=== PATIENT | male | born 1990 | race Caucasian/White ===

== ENCOUNTER 2017-05-31 13:51 | Emergency (ER) | payer OTHER ==
[2017-05-31] MEDS ORDERED: Albuterol/Ipratropium NEB.SOL* Albuterol 2.5 MG/Ipratropium 0.5 MG 3 ML INH ONE (15:12)
[2017-05-31 15:37] LABS: Hematocrit 39 % (42-52); Hemoglobin 13.2 g/dl (14.0-18.0); Mean Corpuscular HGB Conc 34 g/dl (31-36); Mean Corpuscular Hemoglobin 27 pg (27-31); Mean Corpuscular Volume 80 fL (80-94); Mean Platelet Volume 8 um3 (7.4-10.4); Platelet Count 157 10^3/ul (150-450); Red Blood Count 4.91 10^6/ul (4.0-5.4); Red Cell Distribution Width 13 % (10.5-15); White Blood Count 2.1 10^3/ul (3.5-10.8)
[2017-05-31 15:45] LABS: INR 0.99 (0.77-1.02)
[2017-05-31] MEDS: NS 0.9% 1000 ML* 2,000 ML IV ONE ×2 (15:52→15:53)
[2017-05-31 16:01] LABS: ABS Basophils 0.1 10^3/ul (0-0.2); ABS Eosinophils 0 10^3/ul (0-0.6); ABS Lymphocytes 0.8 10^3/ul (1.0-4.8); ABS Monocytes 0.2 10^3/ul (0-0.8); ABS Nucleated RBC 0 10^3/ul; Eosinophil % 0.5 % (0-6); Lymphocyte % 36.6 % (25-47); Nucleated Red Blood Cells % 0.1
--- NOTE | 2017-05-31 16:01 | RAD ---
INDICATION: Chest pain, shortness of breath, known LEFT side pneumonia. COMPARISON: May 23, 2017 TECHNIQUE: Dual energy PA and routine lateral views of the chest were obtained. REPORT: Bilateral subtle pulmonary opacities at the lower lung zones with worsening on the RIGHT and improvement on the LEFT compared with the prior exam. Negative for pleural effusion. No pneumothorax The heart, pulmonary vasculature, and mediastinal contours are unremarkable. IMPRESSION: The constellation of findings is most consistent with mild bronchopneumonia with interval worsening on the RIGHT and improvement on the LEFT compared with the prior exam.
[2017-05-31 16:12] LABS: EGFR Non-African American 105.3 (>60)
[2017-05-31] MEDS ORDERED: cefTRIAXone(*) 1 GM in NS 0.9% 50 ML* 50 ML IVPB ONE (17:17)
[2017-05-31] MEDS ORDERED: Azithromycin IV(*) 500 MG in NS 0.9% 250 ML* 250 ML IVPB ONE (17:18)
[2017-05-31] MEDS ORDERED: Iohexol 350* (CONTRAST) 500 ML MDV IV ONE (17:25)
[2017-05-31] MEDS ORDERED: NS 0.9% 1000 ML* 1,000 ML IV ONE (18:06)
--- NOTE | 2017-05-31 18:10 | RAD ---
INDICATION: Chest pain, shortness of breath, positive d-dimer COMPARISON: May 31, 2017 TECHNIQUE: Multidetector CT images were obtained from the lung apices to the upper abdomen with 75 mL Omnipaque 350 IV contrast. Pulmonary angiogram protocol. Multiplanar reformation including with maximum intensity projection. REPORT: Clear lungs and pleural spaces. Negative for pneumothorax. Negative for lymphadenopathy, cardiomegaly, pericardial effusion. Normal diameter thoracic aorta without abnormality. No filling defects are identified from the main to the subsegmental pulmonary arteries to indicate presence of a pulmonary embolism. Unremarkable images through the upper abdomen. Negative for thoracic osseous lesions or fracture. IMPRESSION: 1. Negative for pulmonary embolism. 2. No acute intrathoracic process evident.
--- NOTE | 2017-05-31 18:50 | RAD ---
INDICATION: Bilateral calf pain. COMPARISON: No relevant prior exams available on the [facility] [place] for comparison. TECHNIQUE: Cool scale, color Doppler, and spectral analysis of the deep veins of the BILATERAL lower extremities. Vessel compression, phasicity, and augmentation assessed. REPORT: The RIGHT common femoral, great saphenous, profunda femoral, femoral, popliteal, peroneal, and posterior tibial veins are patent. The LEFT common femoral, great saphenous, profunda femoral, femoral, popliteal, peroneal, and posterior tibial veins are patent. IMPRESSION: No evidence for RIGHT or LEFT lower extremity DVT.
[2017-05-31] MEDS ORDERED: Albuterol HFA INHALER* 8 gm MDI INH ONE (18:51)
--- NOTE | 2017-05-31 19:08 | ED ---
Ronen Rivera Stephanie, scribed for Kirt Herrera MD on 05/31/17 at 1527 . Shortness of Breath - HPI Summary HPI Summary: The pt is a 27 y/o M presenting to the ED with c/o SOB that began at 10:30 today. The pt was recently diagnosed with pneumonia and is being treated with 2000 mg of amoxicillin per day. The pt was feeling better with treatment until he was exposed to cold earlier today. Symptoms include chest pain, lightheadedness, confusion, decreased energy, dizziness and diaphoresis. The pt denies wheezing. Alleviating factors include sitting and rest. - History of Current Complaint Chief Complaint: EDChestPainROMI Time Seen by Provider: 05/31/17 15:02 Hx Obtained From: Patient Onset/Duration: Lasting Hours - since 10:30 today Aggrevating Factors: Movement, Other - exposure to cold Alleviating Factors: Other - rest Associated Signs & Symptoms: Chest Pain Unrelated to Cough, Diaphoresis, Dizzy - Allergy/Home Medications Allergies/Adverse Reactions: Allergies Allergy/AdvReac Type Severity Reaction Status Date / Time No Known Allergies Allergy Verified 02/27/12 22:05 Home Medications: Home Medications Amoxicillin PO (*) [Amoxicillin 500 MG CAP*] 500 mg PO Q12H 05/31/17 [History Confirmed 05/31/17] Benzonatate CAP* [Tessalon 100 MG CAP*] 200 mg PO TID 05/31/17 [History Confirmed 05/31/17] Nortriptyline CAP* [Pamelor CAP*] 50 mg PO DAILY 05/31/17 [History Confirmed 10/11] PMH/Surg Hx/FS Hx/Imm Hx Endocrine/Hematology History: Denies: Hx Anticoagulant Therapy, Hx Diabetes, Hx Thyroid Disease Cardiovascular History: Reports: Other Cardiovascular Problems/Disorders - HEART MURMER UNDER AGE 10 Denies: Hx Hypertension, Hx Pacemaker/ICD Respiratory History: Denies: Hx Asthma, Hx Chronic Obstructive Pulmonary Disease (COPD) GI History: Reports: Hx Irritable Bowel History: Denies: Hx Renal Disease Opthamlomology History: Denies: Hx Legally Blind EENT History: Denies: Hx Deafness Neurological History: Denies: Hx Dementia, Hx Seizures Psychiatric History: Denies: Hx Substance Abuse - Surgical History Surgery Procedure, Year, and Place: none Infectious Disease History: No Infectious Disease History: Denies: Hx Hepatitis, Hx Human Immunodeficiency Virus (HIV), Traveled Outside the [place] in Last 30 Days - Family History Known Family History: Positive: Unknown - Pt denies family history when asked. - Social History Occupation: Employed Part-time Lives: Alone Hx Substance Use: No Substance Use Type: Reports: None Review of Systems Positive: Skin Diaphoresis, Other - decreased energy, dizziness. Negative: Fever Positive: Chest Pain Positive: Shortness Of Breath Neurological: Other - Lightheadedness, confusion All Other Systems Reviewed And Are Negative: Yes Physical Exam - Summary Physical Exam Summary: General: well-appearing, no pain distress Skin: warm, color reflects adequate perfusion, dry Head: normal Eyes: EOMI, ALEJANDRO ENT: normal Neck: supple, nontender Respiratory: mild respiratory distress, decreased air movement bilaterally Cardiovascular: RRR Abdomen: soft, nontender Bowel: present Musculoskeletal: normal, strength/ROM intact Neurological: normal, sensory/motor intact, A&O x3 Psychological: affect/mood appropriate Triage Information Reviewed: Yes Vital Signs On Initial Exam: Initial Vitals Temp Pulse Resp BP Pulse Ox 99.9 F 125 20 137/94 97 05/31/17 13:53 05/31/17 13:53 05/31/17 13:53 05/31/17 13:53 05/31/17 13:53 Vital Signs Reviewed: Yes Diagnostics - Vital Signs Vital Signs Temp Pulse Resp BP Pulse Ox 05/31/17 13:53 99.9 F 125 20 137/94 97 - Laboratory Lab Results: Lab Results 05/31/17 05/31/17 05/31/17 Range/Units 15:30 15:30 15:30 WBC (3.5-10.8) 10^3/ul RBC (4.0-5.4) 10^6/ul Hgb (14.0-18.0) g/dl Hct (42-52) % MCV (80-94) fL MCH (27-31) pg MCHC (31-36) g/dl RDW (10.5-15) % Plt Count (150-450) 10^3/ul MPV (7.4-10.4) um3 Neut % (Auto) (38-83) % Lymph % (Auto) (25-47) % [place] % (Auto) (1-9) % Eos % (Auto) (0-6) % Baso % (Auto) (0-2) % Absolute Neuts (auto) (1.5-7.7) 10^3/ul Absolute Lymphs (auto) (1.0-4.8) 10^3/ul Absolute Monos (auto) (0-0.8) 10^3/ul Absolute Eos (auto) (0-0.6) 10^3/ul Absolute Basos (auto) (0-0.2) 10^3/ul Absolute Nucleated RBC 10^3/ul Nucleated RBC % INR (Anticoag Therapy) 0.99 (0.77-1.02) APTT 29.9 (26.0-36.3) seconds D-Dimer, Quantitative 323 H (Less Than 230) ng/mL Sodium 135 (133-145) mmol/L Potassium 3.7 (3.5-5.0) mmol/L Chloride 103 (101-111) mmol/L Carbon Dioxide 25 (22-32) mmol/L Anion Gap 7 (2-11) mmol/L BUN 10 (6-24) mg/dL Creatinine 0.87 (0.67-1.17) mg/dL Est GFR ( Amer) 135.4 (>60) Est GFR (Non-Af Amer) 105.3 (>60) BUN/Creatinine Ratio 11.5 (8-20) Glucose 88 (70-100) mg/dL Lactic Acid (0.5-2.0) mmol/L Calcium 8.7 (8.6-10.3) mg/dL Total Bilirubin 0.50 (0.2-1.0) mg/dL AST 31 (13-39) U/L ALT 40 (7-52) U/L Alkaline Phosphatase 64 (34-104) U/L Troponin I 0.00 (<0.04) ng/mL C-Reactive Protein 1.70 (< 5.00) mg/L B-Natriuretic Peptide 19 ( - 100) pg/mL Total Protein 7.2 (6.4-8.9) g/dL Albumin 3.9 (3.2-5.2) g/dL Globulin 3.3 (2-4) g/dL Albumin/Globulin Ratio 1.2 (1-3) Lipase 18 (11.0-82.0) U/L TSH 1.16 (0.34-5.60) mcIU/mL Monoscreen (Negative) Influenza A (Rapid) (Negative) Influenza B (Rapid) (Negative) 05/31/17 05/31/17 05/31/17 Range/Units 15:30 15:30 18:04 WBC 2.1 L (3.5-10.8) 10^3/ul RBC 4.91 (4.0-5.4) 10^6/ul Hgb 13.2 L (14.0-18.0) g/dl Hct 39 L (42-52) % MCV 80 (80-94) fL MCH 27 (27-31) pg MCHC 34 (31-36) g/dl RDW 13 (10.5-15) % Plt Count 157 (150-450) 10^3/ul MPV 8 (7.4-10.4) um3 Neut % (Auto) 48.6 (38-83) % Lymph % (Auto) 36.6 (25-47) % [place] % (Auto) 11.6 H (1-9) % Eos % (Auto) 0.5 (0-6) % Baso % (Auto) 2.7 H (0-2) % Absolute Neuts (auto) 1.0 L (1.5-7.7) 10^3/ul Absolute Lymphs (auto) 0.8 L (1.0-4.8) 10^3/ul Absolute Monos (auto) 0.2 (0-0.8) 10^3/ul Absolute Eos (auto) 0 (0-0.6) 10^3/ul Absolute Basos (auto) 0.1 (0-0.2) 10^3/ul Absolute Nucleated RBC 0 10^3/ul Nucleated RBC % 0.1 INR (Anticoag Therapy) (0.77-1.02) APTT (26.0-36.3) seconds D-Dimer, Quantitative (Less Than 230) ng/mL Sodium (133-145) mmol/L Potassium (3.5-5.0) mmol/L Chloride (101-111) mmol/L Carbon Dioxide (22-32) mmol/L Anion Gap (2-11) mmol/L BUN (6-24) mg/dL Creatinine (0.67-1.17) mg/dL Est GFR ( Amer) (>60) Est GFR (Non-Af Amer) (>60) BUN/Creatinine Ratio (8-20) Glucose (70-100) mg/dL Lactic Acid 0.7 (0.5-2.0) mmol/L Calcium (8.6-10.3) mg/dL Total Bilirubin (0.2-1.0) mg/dL AST (13-39) U/L ALT (7-52) U/L Alkaline Phosphatase (34-104) U/L Troponin I (<0.04) ng/mL C-Reactive Protein (< 5.00) mg/L B-Natriuretic Peptide ( - 100) pg/mL Total Protein (6.4-8.9) g/dL Albumin (3.2-5.2) g/dL Globulin (2-4) g/dL Albumin/Globulin Ratio (1-3) Lipase (11.0-82.0) U/L TSH (0.34-5.60) mcIU/mL Monoscreen Negative (Negative) Influenza A (Rapid) Negative (Negative) Influenza B (Rapid) Negative (Negative) Result Diagrams: 05/31/17 15:30 05/31/17 15:30 Lab Statement: Any lab studies that have been ordered have been reviewed, and results considered in the medical decision making process. - Radiology CXR Radiology Interpretation Completed By: Radiologist - The constellation of findings is most consistent with mild bronchopneumonia with interval worsening on the RIGHT and improvement on the LEFT compared with the prior exam. - CT CTA Chest/Thorax CT Interpretation Completed By: Radiologist - 1. Negative for pulmonary embolism. 2. No acute intrathoracic process - EKG 15:18 EKG Rhythm: Sinus Rhythm - 88 BPM Ectopy: None EKG Interpretation: ST elevation, probable nml early repolarization pattern - Additional Comments Diagnostic Additional Comments: Venous Doppler Study reveals: No evidence for RIGHT or LEFT lower extremity DVT. Course/Dx - Course Course Of Treatment: Medications reviewed. IMPROVED IN ED AFTER TREATMENT TO INCLUDE DUONEB. DISCUSSED RESULTS TO INCLUDE LOW WBC WITH PATIENT AND DR REGALADO, HOSPITALIST. DISCUSSED ADMISSION, PATIENT FEELS COMFORTABLE GOING HOME. F/U PMD; RETURN IF WORSE. - Diagnoses Provider Diagnoses: Pneumonia, Bronchospasm Discharge - Discharge Plan Condition: Stable Disposition: HOME Prescriptions: Azithromycin TAB* [Zithromax TAB (Z-VARUN) 250 mg #6 tabs] 250 mg PO DAILY #4 tab Azithromycin TAB* [Zithromax TAB (Z-VARUN) 250 mg #6 tabs] 250 mg PO DAILY #4 tab Patient Education Materials: Bronchospasm (ED), Pneumonia (ED) Referrals: Tunde Rucker MD [Primary Care Provider] - Additional Instructions: FOLLOW UP WITH YOUR DOCTOR. RETURN TO THE EMERGENCY DEPARTMENT FOR ANY WORSENING OF YOUR CONDITION; CHEST PAIN, SHORTNESS OF BREATH, YOU FEEL ILL OR QUESTIONS OR CONCERNS. The documentation as recorded by the Ronen vazquez Stephanie accurately reflects the service I personally performed and the decisions made by me, Kirt Herrera MD.
[2017-05-31 20:22] VITALS: BP 116/77
== END 2017-05-31 20:20 | disposition home or self-care (01) ==
LOC: EDUNIT# 13:51 → ED 13:51
DX: J18.9 Pneumonia, unspecified organism (principal); J98.01 Acute bronchospasm; R07.9 Chest pain, unspecified; R42 Dizziness and giddiness; R06.02 Shortness of breath
CPT/HCPCS: 36415; 71046; 71275; 80053; 83605; 83690; 83880; 84443; 84484; 85025; 85379; 85610; 85730; 86140; 86308; 87040; 87502; 93005; 93970; 94640; 96365; 99285; A9270-GY; J0456; J0696; Q9967

== ENCOUNTER 2017-06-02 23:21 | Emergency (ER) | payer OTHER ==
[2017-06-03] MEDS: NS 0.9% 1000 ML* 2,000 ML IV ONE (00:16)
[2017-06-03 00:18] LABS: Hematocrit 39 % (42-52); Hemoglobin 13.1 g/dl (14.0-18.0); Mean Corpuscular HGB Conc 34 g/dl (31-36); Mean Corpuscular Hemoglobin 27 pg (27-31); Mean Corpuscular Volume 80 fL (80-94); Mean Platelet Volume 8 um3 (7.4-10.4); Platelet Count 145 10^3/ul (150-450); Red Blood Count 4.87 10^6/ul (4.0-5.4); Red Cell Distribution Width 13 % (10.5-15); White Blood Count 1.8 10^3/ul (3.5-10.8)
[2017-06-03 00:34] LABS: EGFR Non-African American 117.7 (>60)
[2017-06-03 00:54] LABS: Urine Appearance Clear; Urine Blood Negative (Negative); Urine Color Straw; Urine Ketones Negative (Negative); Urine Protein Negative (Negative); Urine Specific Gravity 1.006 (1.010-1.030); Urine Urobilinogen Negative (Negative)
[2017-06-03 01:06] LABS: ABS Basophils 0 10^3/ul (0-0.2); ABS Eosinophils 0 10^3/ul (0-0.6); ABS Lymphocytes 0.9 10^3/ul (1.0-4.8); ABS Monocytes 0.2 10^3/ul (0-0.8); ABS Nucleated RBC 0 10^3/ul; Eosinophil % 0.6 % (0-6); Lymphocyte % 49.7 % (25-47); Nucleated Red Blood Cells % 0.9
[2017-06-03 01:08] LABS: ABS Neutrophils 0.7 10^3/ul (1.5-7.7)
[2017-06-03 03:05] VITALS: BP 109/59
--- NOTE | 2017-06-03 04:04 | ED ---
Alice Rivera Abhishek, scribed for Kirt Herrera MD on 06/03/17 at 0247 . HPI Chest Pain - HPI Summary HPI Summary: This patient is a 27 year old M presenting to [facility] accompanied by two females with a chief complaint of left sided chest pain since 06/02/17 at 2100. The pain was diffuse and then later radiated to the left side. The patient rates the pain 6/10 in severity. Symptoms aggravated by nothing. Symptoms alleviated by nothing. He describes the chest pain as if someone was beating on my chest with a sledgehammer. Patient reports SOB at onset, currently resolved. - History of Current Complaint Chief Complaint: EDChestPainROMI Time Seen by Provider: 06/02/17 23:30 Hx Obtained From: Patient Onset/Duration: Started Hours Ago - 06/02/17 at 2100 Timing: Constant, Lasting Hours - since 2100 Initial Severity: Moderate Current Severity: Moderate Pain Intensity: 6 Pain Scale Used: 0-10 Numeric Chest Pain Location: Right Lateral Character: Sharp/Stabbing - "as if someone was beating a sledgehammer on my chest" Aggravating Factor(s): Nothing Alleviating Factor(s): Nothing Associated Signs and Symptoms: Positive: Chest Pain - left sided, Shortness of Breath - Currently resolved - Allergy/Home Medications Allergies/Adverse Reactions: Allergies Allergy/AdvReac Type Severity Reaction Status Date / Time Codeine Allergy GI Upset Verified 06/02/17 23:37 Food Allergy GI Upset Verified 08/06/13 11:52 PMH/Surg Hx/FS Hx/Imm Hx Cardiovascular History: Reports: Other Cardiovascular Problems/Disorders - arrhythmia GI History: Reports: Hx Irritable Bowel Denies: Other GI Disorders Sensory History: Reports: Hx Contacts or Glasses - GLASSES Denies: Hx Hearing Aid Opthamlomology History: Reports: Hx Contacts or Glasses - GLASSES - Surgical History Surgery Procedure, Year, and Place: LEFT ARM X2 2007 AND 2008, [place] Hx Anesthesia Reactions: No Infectious Disease History: No Infectious Disease History: Denies: Traveled Outside the [place] in Last 30 Days - Family History Known Family History: Positive: Unknown - Pt is adopted and is unsure of FHx - Social History Alcohol Use: Weekly Alcohol Amount: 2 PER WEEK Substance Use Type: Reports: None Smoking Status (MU): Never Smoked Tobacco Review of Systems Constitutional: Negative Eyes: Negative ENT: Negative Positive: Chest Pain - left sided Positive: Shortness Of Breath - Prior to [facility] arrival Gastrointestinal: Negative Genitourinary: Negative Musculoskeletal: Negative Skin: Negative Neurological: Negative Psychological: Normal All Other Systems Reviewed And Are Negative: Yes Physical Exam - Summary Physical Exam Summary: General: well-appearing, Mild pain distress Skin: warm, color reflects adequate perfusion, dry Head: normal Eyes: EOMI, ALEJANDRO ENT: normal Neck: supple, nontender Respiratory: CTA, breath sounds present Cardiovascular: RRR Abdomen: soft, nontender Bowel: present Musculoskeletal: normal, strength/ROM intact Neurological: normal, sensory/motor intact, A&O x3 Psychological: affect/mood appropriate Triage Information Reviewed: Yes Vital Signs On Initial Exam: Initial Vitals Temp Pulse Resp BP Pulse Ox 98.1 F 83 20 133/78 100 06/02/17 23:24 06/02/17 23:24 06/02/17 23:24 06/02/17 23:24 06/02/17 23:24 Vital Signs Reviewed: Yes - Ashley Coma Scale Coma Scale Total: 15 Diagnostics - Vital Signs Vital Signs Temp Pulse Resp BP Pulse Ox 06/03/17 02:30 76 21 107/63 98 06/03/17 02:00 82 14 112/69 99 06/03/17 01:30 91 21 115/72 99 06/03/17 01:00 85 20 123/64 100 06/03/17 00:30 83 21 121/75 99 06/03/17 00:24 132/83 06/03/17 00:19 86 14 97 06/03/17 00:00 82 13 121/79 99 06/02/17 23:34 17 133/78 06/02/17 23:31 17 06/02/17 23:24 98.1 F 83 20 133/78 100 - Laboratory Lab Results: Lab Results 06/03/17 06/03/17 06/03/17 Range/Units 00:09 00:09 00:09 WBC 1.8 L (3.5-10.8) 10^3/ul RBC 4.87 (4.0-5.4) 10^6/ul Hgb 13.1 L (14.0-18.0) g/dl Hct 39 L (42-52) % MCV 80 (80-94) fL MCH 27 (27-31) pg MCHC 34 (31-36) g/dl RDW 13 (10.5-15) % Plt Count 145 L (150-450) 10^3/ul MPV 8 (7.4-10.4) um3 Neut % (Auto) 36.3 L (38-83) % Lymph % (Auto) 49.7 H (25-47) % [place] % (Auto) 11.0 H (1-9) % Eos % (Auto) 0.6 (0-6) % Baso % (Auto) 2.4 H (0-2) % Absolute Neuts (auto) 0.7 L* (1.5-7.7) 10^3/ul Absolute Lymphs (auto) 0.9 L (1.0-4.8) 10^3/ul Absolute Monos (auto) 0.2 (0-0.8) 10^3/ul Absolute Eos (auto) 0 (0-0.6) 10^3/ul Absolute Basos (auto) 0 (0-0.2) 10^3/ul Absolute Nucleated RBC 0 10^3/ul Nucleated RBC % 0.9 Hem Pathologist Commnt Pending INR (Anticoag Therapy) 1.00 (0.77-1.02) APTT 30.3 (26.0-36.3) seconds D-Dimer, Quantitative 419 H (Less Than 230) ng/mL Sodium 138 (133-145) mmol/L Potassium 3.6 (3.5-5.0) mmol/L Chloride 107 (101-111) mmol/L Carbon Dioxide 25 (22-32) mmol/L Anion Gap 6 (2-11) mmol/L BUN 6 (6-24) mg/dL Creatinine 0.79 (0.67-1.17) mg/dL Est GFR ( Amer) 151.3 (>60) Est GFR (Non-Af Amer) 117.7 (>60) BUN/Creatinine Ratio 7.6 L (8-20) Glucose 97 (70-100) mg/dL Lactic Acid (0.5-2.0) mmol/L Calcium 8.6 (8.6-10.3) mg/dL Magnesium 1.8 L (1.9-2.7) mg/dL Total Bilirubin 0.40 (0.2-1.0) mg/dL AST 34 (13-39) U/L ALT 43 (7-52) U/L Alkaline Phosphatase 58 (34-104) U/L Total Creatine Kinase 80 (10-223) U/L Troponin I 0.00 (<0.04) ng/mL C-Reactive Protein 1.05 (< 5.00) mg/L Total Protein 6.8 (6.4-8.9) g/dL Albumin 3.7 (3.2-5.2) g/dL Globulin 3.1 (2-4) g/dL Albumin/Globulin Ratio 1.2 (1-3) Lipase 22 (11.0-82.0) U/L TSH 6.64 H (0.34-5.60) mcIU/mL Urine Color Urine Appearance Urine pH (5-9) Ur Specific Addis (1.010-1.030) Urine Protein (Negative) Urine Ketones (Negative) Urine Blood (Negative) Urine Nitrate (Negative) Urine Bilirubin (Negative) Urine Urobilinogen (Negative) Ur Leukocyte Esterase (Negative) Urine Glucose (Negative) Urine Opiates Screen (None Detect) Ur Barbiturates Screen (None Detect) Ur Phencyclidine Scrn (None Detect) Ur Amphetamines Screen (None Detect) U Benzodiazepines Scrn (None Detect) Urine Cocaine Screen (None Detect) U Cannabinoids Screen (None Detect) Monoscreen Negative (Negative) 06/03/17 06/03/17 06/03/17 Range/Units 00:09 00:20 00:20 WBC (3.5-10.8) 10^3/ul RBC (4.0-5.4) 10^6/ul Hgb (14.0-18.0) g/dl Hct (42-52) % MCV (80-94) fL MCH (27-31) pg MCHC (31-36) g/dl RDW (10.5-15) % Plt Count (150-450) 10^3/ul MPV (7.4-10.4) um3 Neut % (Auto) (38-83) % Lymph % (Auto) (25-47) % [place] % (Auto) (1-9) % Eos % (Auto) (0-6) % Baso % (Auto) (0-2) % Absolute Neuts (auto) (1.5-7.7) 10^3/ul Absolute Lymphs (auto) (1.0-4.8) 10^3/ul Absolute Monos (auto) (0-0.8) 10^3/ul Absolute Eos (auto) (0-0.6) 10^3/ul Absolute Basos (auto) (0-0.2) 10^3/ul Absolute Nucleated RBC 10^3/ul Nucleated RBC % Hem Pathologist Commnt INR (Anticoag Therapy) (0.77-1.02) APTT (26.0-36.3) seconds D-Dimer, Quantitative (Less Than 230) ng/mL Sodium (133-145) mmol/L Potassium (3.5-5.0) mmol/L Chloride (101-111) mmol/L Carbon Dioxide (22-32) mmol/L Anion Gap (2-11) mmol/L BUN (6-24) mg/dL Creatinine (0.67-1.17) mg/dL Est GFR ( Amer) (>60) Est GFR (Non-Af Amer) (>60) BUN/Creatinine Ratio (8-20) Glucose (70-100) mg/dL Lactic Acid 1.2 (0.5-2.0) mmol/L Calcium (8.6-10.3) mg/dL Magnesium (1.9-2.7) mg/dL Total Bilirubin (0.2-1.0) mg/dL AST (13-39) U/L ALT (7-52) U/L Alkaline Phosphatase (34-104) U/L Total Creatine Kinase (10-223) U/L Troponin I (<0.04) ng/mL C-Reactive Protein (< 5.00) mg/L Total Protein (6.4-8.9) g/dL Albumin (3.2-5.2) g/dL Globulin (2-4) g/dL Albumin/Globulin Ratio (1-3) Lipase (11.0-82.0) U/L TSH (0.34-5.60) mcIU/mL Urine Color Straw Urine Appearance Clear Urine pH 7.0 (5-9) Ur Specific Addis 1.006 L (1.010-1.030) Urine Protein Negative (Negative) Urine Ketones Negative (Negative) Urine Blood Negative (Negative) Urine Nitrate Negative (Negative) Urine Bilirubin Negative (Negative) Urine Urobilinogen Negative (Negative) Ur Leukocyte Esterase Negative (Negative) Urine Glucose Negative (Negative) Urine Opiates Screen None detected (None Detect) Ur Barbiturates Screen None detected (None Detect) Ur Phencyclidine Scrn None detected (None Detect) Ur Amphetamines Screen None detected (None Detect) U Benzodiazepines Scrn None detected (None Detect) Urine Cocaine Screen None detected (None Detect) U Cannabinoids Screen None detected (None Detect) Monoscreen (Negative) Result Diagrams: 06/03/17 00:09 06/03/17 00:09 Lab Statement: Any lab studies that have been ordered have been reviewed, and results considered in the medical decision making process. - Radiology Chest X-ray Radiology Interpretation Completed By: ED Physician - Chest X-ray revealed no acute findings as per ED Physician - EKG 7972 EKG Rhythm: Sinus Rhythm - [address] Segment: Normal Ectopy: None Chest Pain Course/Dx - Course Course Of Treatment: DISCUSSED RESULTS, NO INCLUDE LOW WBC, WITH PATIENT AND FAMILY. DISCUSSED WITH DR MONTERROSO, HEMATOLOGY/ONCOLOGY. HIS OFFICE WILL CALL PATIENT FOR F/U. DICUSSED ADMISSION WITH PATIENT AND FAMILY. CHEST PAIN IMPROVED IN ED. PATIENT DECLINED ADMISSION, HE WISHES TO GO HOME. F/U PMD AND HEMATOLOGY/ONCOLOGY; RETURN IF WORSE. NO CRITICAL CARE TIME. - Diagnoses Provider Diagnoses: Chest pain, Neutropenia Discharge - Discharge Plan Condition: Stable Disposition: HOME Patient Education Materials: Chest Pain (ED), Neutropenia (ED) Referrals: Tunde Rucker MD [Primary Care Provider] - Additional Instructions: FOLLOW UP WITH YOUR DOCTOR. YOUR CASE WAS DISCUSSED WITH HEMATOLOGY/ONCOLOGY, DR MONTERROSO. HIS OFFICE WILL CALL YOU FOR AN OUT PATIENT FOLLOW UP. YOUR WHITE BLOOD CELL COUNT IS LOW; GET RECHECKED RIGHT AWAY FOR ANY SIGNS OF INFECTION. RETURN TO THE EMERGENCY DEPARTMENT FOR ANY WORSENING OF YOUR CONDITION; FEVER, PAIN, SHORTNESS OF BREATH, YOU FEEL ILL OR QUESTIONS OR CONCERNS. The documentation as recorded by the Alice vazquez Abhishek accurately reflects the service I personally performed and the decisions made by me, Kirt Herrera MD.
--- NOTE | 2017-06-03 08:02 | RAD ---
INDICATION: Chest pain. COMPARISON: Comparison is made with a prior chest x-ray study from May 07, 20142010. TECHNIQUE: A portable view of the chest was obtained. FINDINGS: Cardiac and mediastinal contours appear to be within normal limits. The lungs are clear. No pleural effusion is seen. IMPRESSION: NO EVIDENCE FOR ACUTE DISEASE.
== END 2017-06-03 03:04 | disposition home or self-care (01) ==
LOC: ED 23:21
DX: R07.9 Chest pain, unspecified (principal); D70.9 Neutropenia, unspecified; Z88.5 Allergy status to narcotic agent
CPT/HCPCS: 36415; 71045; 80053; 80307; 81003; 82550; 82607; 83605; 83690; 83735; 84443; 84484; 85025; 85060; 85379; 85610; 85730; 86140; 86308; 93005; 96360; 99284

== ENCOUNTER 2017-06-08 10:15 | Emergency (ER) | payer OTHER ==
[2017-06-08] MEDS ORDERED: diPHENhydraMINE IV* 50 MG/ML 1 ml VIAL (BENADRYL) IV ONE (10:23)
[2017-06-08] MEDS ORDERED: methylPREDNISolone 125 MG* 2 ML VIAL IV ONE (10:24)
[2017-06-08] MEDS ORDERED: Famotidine IV * 20 MG in NS 0.9% 100 ML* 100 ML IV ONE (10:24)
[2017-06-08] MEDS ORDERED: NS 0.9% 1000 ML* 1,000 ML IV ONE (10:25)
[2017-06-08] MEDS ORDERED: diPHENhydraMINE IV* 50 MG/ML 1 ml VIAL (BENADRYL) ONE (10:30)
[2017-06-08] MEDS ORDERED: methylPREDNISolone 125 MG* 2 ML VIAL ONE (10:30)
[2017-06-08] MEDS ORDERED: Famotidine IV* 10 MG/ML 2 ML (20 mg) ONE (10:30)
--- OUTSIDE RECORDS SUMMARY | 2017-06-08 10:38 | XMS REPORT ---
:1990 External Reference #:[id number] Author Organization [facility] Address [address] [place] [address] Phone [phone] Care Team Providers Name Role Phone Tunde Rucker MD Care Team Information Regroover Unavailable Tunde Rucker MD Primary Care Physician Unavailable Payers Type Date Identification Numbers Payment Provider Subscriber Commercial Policy Number: [id number] [facility] Inna Villegas Group Number: [id number] [address] PayID: [id number] [place] [address] Problems Date Description Provider Status Onset: 07/23/2011 Irritable bowel syndrome Tunde Rucker M.D. Active Family History Date Family Member(s) Problem(s) Comments General Family history unknown, pt adopted. Social History Type Date Description Comments Cigarette Use Nonsmoker ETOH Use Denies alcohol use Smoking Patient has never smoked Exercise Type/Frequency Current Exercises sporadically Seat Belt/Car Seat Always uses a seat belt Allergies, Adverse Reactions, Alerts Date Description Reaction Status Severity Comments 04/02/2016 Codeine headaches active 07/23/2011 NKDA inactive Medications Medication Date Status Form Strength Qnty SIG Indications Ordering Provider Benzonatate 05/23/ Active Capsules 200mg 30cap take one by J20.9 Reva Wang 2016 s mouth 3 Mikal, times daily ONCOLOGY RN as needed for cough Lomotil 08/30/ Active Tablets 2.5-0.025 120ta 2 tabs po R19.7 Nikkie 2016 mg bs qid prn Pito, diarrhea; FUR BLENDER ingest after first episode loose stool each day, repeat as needed Nortriptyline 08/30/ Active Capsules 50mg 90cap Take 1 K58.0 Nikkie HCL 2016 s Capsule By Pito, Mouth Once FUR BLENDER Daily Ventolin HFA 11/25/ Active Aerosol 108(90Bas 1inha 2 puffs 493.90 Inderjit Ibarra, 2013 e) ler every 4 M.D. mcg/Act hours as needed for cough or shortness of breath Dicyclomine HCL 09/15/ Active Capsules 10mg 40cap 1 tab by Nikkie 2013 s mouth 2 Pito, times per FUR BLENDER day as needed cramping, pain in abdomen Azithromycin 05/21/ Hx Tablets 250mg 6tabs z loren as Анна Galvan 2017 - directed, 2 Frey, 05/23/ tabs day ONCOLOGY RN 2016 one, one tab day 2-5 Nortriptyline 04/07/ Hx Capsules 25mg 30cap Take One K58.0 DWIGHT Hernandez 2013 - s Capsule By Michael 08/30/ Mouth One 2015 Time Daily In The P.M. Doxycycline 03/12/ Hx Capsules 100mg 20cap take one Leon F. Hyclate 2011 - s capsule by Ilda, 03/22/ mouth twice M.D. 2011 a day Zofran Odt 09/08/ Hx Tablets 4mg 20tab 1 q 6 hrs Perry Guzmán 2011 - Dispers s prn nausea Midura, 02/03/ M.D. 2011 Proair HFA 09/05/ Hx Aerosol 108(90Bas 3unit 2 puffs 20 Tunde ANadira 2011 - e) mcg/ac s minutes Darlow, 09/15/ prior to M.D. 2014 exercise Tetracycline 09/22/ Hx Capsules 250mg 15cap disolve in 528.00 Miriam HCL 2010 - s water 2-3 Bree, 09/27/ x/day x 5 Afnp-C 2010 days HC Pram Cream 03/02/ Hx 1% 1Oz Apply two 787.91 Tunde ANadira 2009 - to three Darlow, 06/15/ times a day M.D. 2010 Augmentin 11/05/ Hx Tablets 500mg 20tab 1 po bid 682.8 Miriam 2008 - s with food x Bree, 11/15/ 10 days Afnp-C 2008 Zithromax 05/08/ Hx Tablets 250mg 6Tabs 2 po qd Perry Ramirez 2007 - today , Midura, 11/05/ then 1 po M.D. 2008 qd times 4 Zithromax 06/30/ Hx Tablets 250mg 1tabs 2 po qd 462 Ha A. 2008 - today , Mouna, 05/08/ then 1 po M.D. 2008 qd times 4 Tylenol/Codeine 06/30/ Hx Tablets #3 20tab one tab po 462 Ha A. #3 2008 - s every six Mouna, 05/08/ hours prn M.D. 2007 pain Penicillin VK 04/18/ Hx Tablets 500mg 20tab 1 po bid Cierra 2004 - s ten days [facility], 04/28/ Afnp-C 2005 Zyrtec D 10/31/ Hx Tablets 5mg;120 60tab 1 PO bid Lucy Paul 2005 - mg s Franck, 01/08/ FUR BLENDER-C 2006 Gym 04/14/ Hx no gym x 1 Cierra 2002 - week [facility], 04/21/ Afnp-C 2002 Foradil Hx 12mcg 1Box 1 Tunde Nixon 2002 - inhalation Darlow, 01/08/ bid M.D. 2006 Gym 08/10/ Hx Should Be Cierra 2002 - Out Of Gym [facility], 08/13/ Until Afnp-C 200208/13/02 Gym 04/29/ Hx May Return Tunde Nixon 2001 - To Gym Darlow, 04/30/ M.D. 2001 [facility] [place] Hx 1Bott Twice Tunde Catalan 2001 - le Weekly Darlow, 11/25/ M.D. 2002 Foradil 10/16/ Hx 12mcg 2unit 1 Tunde Nixon 2001 - s Inhalation Darlow, 11/25/ bid M.D. 2002 Note 10/16/ Hx 1 puff Of Tunde Nixon 2001 - Foradil 20 Darlow, 10/17/ Minutes M.D. 2001 Before Activity Bactroban 09/08/ Hx 15gm Apply tid Leon F. 2001 - Shallish, 09/09/ M.D. 2001 [place] 09/08/ Hx Cream 0.1% 45gm Apply bid Leon F. 2001 - To Hands Shallish, 11/25/ M.D. 2003 protopic 04/01/ Hx 30gra 30gm tube Zeus Alfonso 2000 - m apply for Blumkin, 11/25/ not more M.D. 2003 than 1 month to affected area Zithromax 08/07/ Hx 250mg 6unit 2 Tabs Day Belem 2000 - s 1 Jonathan, 01/10/ FUR BLENDER 1999 1 Tab qd Days 2 Thru 5 Out Of Gym 06/30/ Hx Should Be Zeus Alfonso 1999 - Out Of Gym Nelly, From 06/30/99 M.D. 1999 To 07/08/99 Due To Subungual Hematoma Claritin Redi 05/18/ Hx 30uni One qd prn Zeus MNadira Tabs 1998 - ts Allergies Blgely, 10/25/ M.D. 1999 Valisone Cream 11/23/ Hx .1% 30gm Apply tid Zeus Alfonso 1997 - prn Blgely, 11/25/ M.D. 2002 Nortriptyline / Hx Capsules 50mg 30cap 1 po qhs 564.1 Tunde A. HCL 0000 - s [facility], M.D. 2013 Immunizations CPT Code Status Date Vaccine Lot # 11899 Given 10/07/2014 Tetanus And Diptheria Adult Preservative Free [id number] >7Yrs 34358 Given 03/14/2014 DO Not Use Split Influenza Virus Vaccine 72007 Given 02/10/2011 DO Not Use Split Influenza Virus Vaccine 94899 Given 03/02/2010 DO Not Use Split Influenza Virus Vaccine [id number] 55683 Given 05/10/2009 H1N1 Virus Vaccine [id number] 16638 Given 05/10/2009 H1N1 Immunization Intramuscular/Intranasal [facility] 50363 Given 03/24/2008 DO Not Use Split Influenza Virus Vaccine [id number] 19150 Given 03/22/2007 DO Not Use Split Influenza Virus Vaccine [id number] 81945 Given 04/01/2006 DO Not Use Split Influenza Virus Vaccine [id number] 96010 Given 04/01/2006 Tdap Tetanus, W Pertussis [id number] 31700 Given 05/16/2005 DO Not Use Split Influenza Virus Vaccine [id number] 40253 Given 01/19/2004 Td Immunization, For Use In Individuals 7 Years Or Older 91537 Given 04/14/2003 DO Not Use Split Influenza Virus Vaccine 36694 Given 04/14/2003 DO Not Use Split Influenza Virus Vaccine 17790 Given 06/30/1999 Hepatitis B Immunization, [place]-19 Years 16114 Given 02/22/1999 Hepatitis B Immunization, -19 Years 71090 Given 01/20/1999 Hepatitis B Immunization, [place]-19 Years Vital Signs Date Vital Result Comment 05/23/2017 BP Systolic 126 mmHg BP Diastolic 82 mmHg Heart Rate 100 /min Body Temperature 97.9 F Height 70 inches 5'10" 05/15/2017 BP Systolic 130 mmHg BP Diastolic 72 mmHg Heart Rate 92 /min Body Temperature 99.5 F Height 70 inches 5'10" Weight 206.12 lb BMI (Body Mass Index) 29.6 kg/m2 04/02/2016 BP Systolic 110 mmHg BP Diastolic 70 mmHg Heart Rate 84 /min Body Temperature 98.3 F Respiratory Rate 12 /min Height 70 inches 5'10" Weight 175.00 lb BMI (Body Mass Index) 25.1 kg/m2 09/22/2015 BP Systolic 102 mmHg BP Diastolic 62 mmHg Heart Rate 80 /min Body Temperature 98.4 F Respiratory Rate 16 /min Height 70 inches 5'10" Weight 180.00 lb BMI (Body Mass Index) 25.8 kg/m2 08/31/2015 BP Systolic 110 mmHg BP Diastolic 70 mmHg Heart Rate 80 /min Body Temperature 97.7 F Respiratory Rate 16 /min Height 70 inches 5'10" Weight 180.00 lb BMI (Body Mass Index) 25.8 kg/m2 03/02/2015 BP Systolic 106 mmHg BP Diastolic 76 mmHg Heart Rate 60 /min Body Temperature 98.5 F Respiratory Rate 16 /min Height 70 inches 5'10" Weight 187.50 lb BMI (Body Mass Index) 26.9 kg/m2 02/07/2015 BP Systolic 120 mmHg BP Diastolic 70 mmHg Heart Rate 78 /min Body Temperature 98.1 F Respiratory Rate 16 /min Height 70 inches 5'10" Weight 190.00 lb BMI (Body Mass Index) 27.3 kg/m2 10/07/2014 BP Systolic 138 mmHg BP Diastolic 80 mmHg Heart Rate 68 /min Body Temperature 98.1 F Height 70 inches 5'10" Weight 211.00 lb BMI (Body Mass Index) 30.3 kg/m2 06/04/2014 BP Systolic 120 mmHg BP Diastolic 80 mmHg Heart Rate 82 /min Body Temperature 98.4 F Respiratory Rate 15 /min Height 70 inches 5'10" Weight 220.12 lb BMI (Body Mass Index) 31.6 kg/m2 04/07/2014 BP Systolic 122 mmHg BP Diastolic 82 mmHg Heart Rate 92 /min Body Temperature 98.2 F Respiratory Rate 14 /min Height 70 inches 5'10" Weight 208.50 lb BMI (Body Mass Index) 29.9 kg/m2 12/25/2013 BP Systolic 120 mmHg BP Diastolic 80 mmHg Heart Rate 80 /min Body Temperature 97.8 F Respiratory Rate 12 /min Height 70 inches 5'10" Weight 207.00 lb BMI (Body Mass Index) 29.7 kg/m2 11/25/2013 BP Systolic 116 mmHg BP Diastolic 78 mmHg Heart Rate 84 /min Body Temperature 98.1 F Respiratory Rate 16 /min Height 70 inches 5'10" Weight 200.00 lb BMI (Body Mass Index) 28.7 kg/m2 09/15/2013 BP Systolic 100 mmHg BP Diastolic 64 mmHg Heart Rate 80 /min Body Temperature 98.2 F Respiratory Rate 14 /min Height 70 inches 5'10" Weight 207.00 lb BMI (Body Mass Index) 29.7 kg/m2 03/12/2012 BP Systolic 92 mmHg BP Diastolic 66 mmHg Heart Rate 84 /min Body Temperature 97.1 F Height 70 inches 5'10" Weight 183.00 lb BMI (Body Mass Index) 26.3 kg/m2 02/04/2012 BP Systolic 110 mmHg BP Diastolic 68 mmHg Heart Rate 78 /min Body Temperature 97.6 F Respiratory Rate 16 /min Height 70 inches 5'10" Weight 187.00 lb BMI (Body Mass Index) 26.8 kg/m2 07/23/2011 BP Systolic 116 mmHg BP Diastolic 80 mmHg Heart Rate 88 /min Body Temperature 98.4 F Respiratory Rate 12 /min Height 70 inches 5'10" Weight 204.00 lb BMI (Body Mass Index) 29.3 kg/m2 09/22/2010 BP Systolic 118 mmHg BP Diastolic 80 mmHg Heart Rate 88 /min Body Temperature 98.3 F Height 69.75 inches 5'9.75" Weight 193.00 lb BMI (Body Mass Index) 27.9 kg/m2 06/15/2010 BP Systolic 116 mmHg BP Diastolic 70 mmHg Heart Rate 72 /min Body Temperature 98.5 F Respiratory Rate 12 /min Height 69.75 inches 5'9.75" Weight 176.00 lb BMI (Body Mass Index) 25.4 kg/m2 03/02/2010 BP Systolic 100 mmHg BP Diastolic 80 mmHg Heart Rate 80 /min Body Temperature 98.4 F Weight 200.00 lb 11/03/2009 BP Systolic 128 mmHg BP Diastolic 86 mmHg Heart Rate 64 /min Body Temperature 98.1 F Weight 235.00 lb 11/05/2008 BP Systolic 122 mmHg BP Diastolic 70 mmHg Heart Rate 76 /min Body Temperature 99.1 F Weight 260.00 lb Weight Percentile >97th 05/08/2008 BP Systolic 120 mmHg BP Diastolic 60 mmHg Heart Rate 84 /min Body Temperature 99.6 F Weight 253.00 lb Weight Percentile >97th 06/30/2007 BP Systolic 130 mmHg BP Diastolic 70 mmHg Heart Rate 88 /min Body Temperature 99.8 F Respiratory Rate 12 /min Height 69.5 inches 5'9.50" Weight 254.00 lb BMI (Body Mass Index) 37.0 kg/m2 Body Mass Index Percentile 97 % Weight Percentile >97th Height Percentile 56 % 02/05/2007 BP Systolic 130 mmHg BP Diastolic 70 mmHg Heart Rate 78 /min Respiratory Rate 16 /min Weight 240.00 lb Weight Percentile >95th 01/08/2007 BP Systolic 128 mmHg BP Diastolic 70 mmHg Heart Rate 72 /min Height 70.5 inches 5'10.50" Weight 240.00 lb BMI (Body Mass Index) 33.9 kg/m2 Body Mass Index Percentile 95 % Weight Percentile >95th Height Percentile 71 % Right Visual Acuity Distance 20/25 With Glasses Left Visual Acuity Distance 20/25 11/28/2006 BP Systolic 132 mmHg BP Diastolic 80 mmHg Heart Rate 84 /min Respiratory Rate 16 /min Height 71.5 inches 5'11.50" Weight 238.00 lb BMI (Body Mass Index) 32.7 kg/m2 Body Mass Index Percentile 95 % Weight Percentile >95th Height Percentile 82 % 03/05/2006 BP Systolic 114 mmHg BP Diastolic 74 mmHg Heart Rate 72 /min Body Temperature 99.1 F Weight 216.00 lb Weight Percentile >95th 01/02/2006 BP Systolic 130 mmHg BP Diastolic 80 mmHg Body Temperature 99.1 F Height 70 inches 5'10" Weight 214.00 lb BMI (Body Mass Index) 30.7 kg/m2 Body Mass Index Percentile 95 % Weight Percentile >95th Height Percentile 75 % 04/17/2005 BP Systolic 110 mmHg BP Diastolic 68 mmHg Heart Rate 84 /min Body Temperature 98.5 F Weight 218.00 lb Weight Percentile >95th 10/31/2004 BP Systolic 120 mmHg BP Diastolic 80 mmHg 07/04/2004 Body Temperature 98.4 F Weight 196.00 lb Weight Percentile >95th 01/19/2004 BP Systolic 128 mmHg BP Diastolic 86 mmHg Heart Rate 76 /min Height 69.5 inches 5'9.50" Weight 180.00 lb BMI (Body Mass Index) 26.2 kg/m2 Body Mass Index Percentile 95 % Weight Percentile >95th Height Percentile 95 % Right Visual Acuity Distance 20/40 Left Visual Acuity Distance 20/40 09/14/2003 BP Systolic 114 mmHg BP Diastolic 74 mmHg Heart Rate 88 /min Height 68.5 inches 5'8.50" Weight 166.00 lb BMI (Body Mass Index) 24.9 kg/m2 Weight Percentile >95th Height Percentile 95 % 04/14/2003 BP Systolic 116 mmHg BP Diastolic 70 mmHg Heart Rate 72 /min Weight 155.00 lb Weight Percentile >95th 11/25/2002 BP Systolic 110 mmHg BP Diastolic 66 mmHg Heart Rate 68 /min Height 68 inches 5'8" Weight 144.00 lb BMI (Body Mass Index) 21.9 kg/m2 Weight Percentile >95th Height Percentile 95 % Right Visual Acuity Distance 20/50 Left Visual Acuity Distance 20/50 08/10/2002 BP Systolic 110 mmHg BP Diastolic 80 mmHg Heart Rate 76 /min Body Temperature 97.3 F Weight 137.00 lb Weight Percentile >95th 04/15/2002 BP Systolic 106 mmHg BP Diastolic 68 mmHg Heart Rate 80 /min Weight 138.00 lb Weight Percentile >95th 10/16/2001 BP Systolic 100 mmHg BP Diastolic 60 mmHg Weight 134.00 lb Weight Percentile >95th 09/30/2001 Body Temperature 97.5 F Weight 131.00 lb Weight Percentile >95th 09/08/2001 Body Temperature 97.3 F Weight 131.00 lb Weight Percentile >95th 01/01/2000 Body Temperature 97.4 F Respiratory Rate 0 /min Weight 126.00 lb 10/26/1999 BP Systolic 104 mmHg BP Diastolic 60 mmHg Heart Rate 80 /min Weight 126.00 lb Weight Percentile >95th 06/30/1999 Weight 114.00 lb Weight Percentile >95th 05/18/1999 Body Temperature 97.1 F Weight 108.00 lb 01/20/1999 BP Systolic 110 mmHg LA SM Cuff BP Diastolic 68 mmHg LA SM Cuff Heart Rate 80 /min Reg Body Temperature 97.8 F Height 56.25 inches 4'8.25" Weight 94.50 lb Weight Percentile >95th Height Percentile 95 % Right Visual Acuity Distance 20/25 Color Passed Left Visual Acuity Distance 20/25 01/24/1998 BP Systolic 116 mmHg Ra Ped Cuff BP Diastolic 72 mmHg Ra Ped Cuff Heart Rate 80 /min Reg Body Temperature 96.4 F Height 54.25 inches 4'6.25" Weight 91.50 lb Weight Percentile >95th 12/15/1997 Body Temperature 96.7 F Weight 90.00 lb Weight Percentile >95th 11/23/1997 Body Temperature 97.5 F Weight 94.50 lb Weight Percentile >95th 06/11/1997 Body Temperature 98.0 F Weight 84.00 lb Weight Percentile >95th 05/29/1997 Height 53.00 inches 4'5" Weight 89.00 lb Weight Percentile >95th Results Test Date Test Result H/L Range Note Laboratory test finding 05/15/2017 Quickstrep negative Negative Comprehensive Metabolic Prof 04/02/2016 Sodium 141 mEq/L 134-149 Potassium 4.5 mEq/L 3.6-5.5 Chloride 102 mEq/L 94-112 Carbon Dioxide 25 mEq/L 21-32 Glucose 93 mg/dL 70-105 BUN 10 mg/dL 6-26 Creatinine 1.0 mg/dL 0.6-1.4 BUN/Creat Ratio 10.0 CALC 8.0-36.0 Calcium 9.8 mg/dL 8.6-10.2 Total Protein 7.6 g/dL 6.4-8.3 Albumin 4.5 g/dL 3.8-5.5 Globulin 3.1 g/dL 2.0-4.8 A/G Ratio 1.5 CALC 0.6-2.3 Alk. Phosphatase 65 U/L 22-95 Alt (SGPT) 50 U/L High 7-35 1 Ast (Sgot) 30 U/L 5-34 Total Bilirubin 0.4 mg/dL 0.2-1.3 GFR Non- >60 ml/min/1.73m^ >=60 GFR >60 ml/min/1.73m^ >=60 Complete Blood Count 04/02/2016 WBC 5.7 x10^3/UL 3.6-9.6 RBC 5.45 x10^6/UL 3.90-5.70 HGB 15.0 g/dL 12.1-17.2 HCT 45 % 36-50 MCV 83.0 fL 82.2-97.4 MCH 27.6 pg 27.6-33.3 MCHC 33.1 g/dL 33.0-35.5 RDW 13.3 % 11.6-13.7 PLT 210 x10^3/UL 150-400 MPV 6.6 fL Low 7.4-10.4 Gran # 3.5 x10^3/UL 1.5-7.2 Lymph# 1.9 x10^3/UL 0.7-4.9 Garrett# 0.3 x10^3/UL 0.1-0.9 Gran % 59.7 % 42.2-75.2 Lymph % 34.8 % 20.5-51.1 Garrett% 5.5 % 1.7-9.3 Laboratory test finding 04/02/2016 CRP High Sensitivity 0.29 mg/L 2 Ict Hemoccult (Fma) 10/03/2015 Ict Hemoccult (1) 09/22/15 NEG Ict Hemoccult-(2) 09/24/15 NEG Ict-Hemoccult (3) 09/25/15 NEG H Pylori, Igm, Igg, Iga AB 08/31/2015 H. pylori, IgG Abs <0.9 U/mL 0.0 -0.8 3, 4 H. pylori, IgA Abs <9.0 units 0.0-8.9 3, 5 H. pylori, IgM Abs <9.0 units 0.0-8.9 3, 6 Complete Blood Count 08/31/2015 WBC 3.9 x10^3/UL 3.6-9.6 RBC 5.38 x10^6/UL 3.90-5.70 HGB 15.3 g/dL 12.1-17.2 HCT 46 % 36-50 MCV 85.0 fL 82.2-97.4 MCH 28.5 pg 27.6-33.3 MCHC 33.7 g/dL 33.0-35.5 RDW 12.9 % 11.6-13.7 PLT 210 x10^3/UL 150-400 MPV 7.5 fL 7.4-10.4 Gran # 2.2 x10^3/UL 1.5-7.2 Lymph# 1.5 x10^3/UL 0.7-4.9 Garrett# 0.2 x10^3/UL 0.1-0.9 Gran % 53.8 % 42.2-75.2 Lymph % 39.9 % 20.5-51.1 Garrett% 6.3 % 1.7-9.3 Comprehensive Metabolic Prof 08/31/2015 Sodium 145 mEq/L 134-149 Potassium 4.4 mEq/L 3.6-5.5 Chloride 106 mEq/L 94-112 Carbon Dioxide 31 mEq/L 21-32 Glucose 61 mg/dL Low 70-105 7 BUN 14 mg/dL 6-26 Creatinine 1.0 mg/dL 0.6-1.4 BUN/Creat Ratio 14.0 CALC 8.0-36.0 Calcium 9.4 mg/dL 8.6-10.2 Total Protein 7.7 g/dL 6.4-8.3 Albumin 4.2 g/dL 3.8-5.5 Globulin 3.5 g/dL 2.0-4.8 A/G Ratio 1.2 CALC 0.6-2.3 Alk. Phosphatase 64 U/L 22-95 Alt (SGPT) 25 U/L 7-35 Ast (Sgot) 18 U/L 5-34 Total Bilirubin 0.5 mg/dL 0.2-1.3 GFR Non- >60 ml/min/1.73m^ >=60 GFR >60 ml/min/1.73m^ >=60 Comprehensive Metabolic Prof 06/04/2014 Sodium 137 mEq/L 134-149 Potassium 4.3 mEq/L 3.6-5.5 Chloride 99 mEq/L 94-112 Carbon Dioxide 26 mEq/L 21-32 Glucose 90 mg/dL 70-105 BUN 14 mg/dL 6-26 Creatinine 1.1 mg/dL 0.6-1.4 BUN/Creat Ratio 12.7 CALC 8.0-36.0 Calcium 9.7 mg/dL 8.6-10.2 Total Protein 7.1 g/dL 6.4-8.3 Albumin 4.3 g/dL 3.8-5.5 Globulin 2.8 g/dL 2.0-4.8 A/G Ratio 1.5 CALC 0.6-2.3 Alk. Phosphatase 69 U/L 22-95 Alt (SGPT) 122 U/L High 7-35 8 Ast (Sgot) 53 U/L High 5-34 9 Total Bilirubin 0.3 mg/dL 0.2-1.3 CBC Electronic ([facility]) 06/04/2014 WBC 5.3 3.6-9.6 RBC 5.34 3.90-5.70 Hemoglobin (Fma/CMC/CTX) 14.7 g/dL 12.1 - 17.2 Hematocrit (Fma/CMC/CTX) 44.7 % 36.1 - 50.3 Platelets 241 10^3/ul 150-400 Lymph% 40.0 % 17.0-48.0 Mixed% 6.8 Neutrophils % 53.2 Mean Corpuscular Vol 84 82.2-97.4 Mean Corpuscular Hemoglobin 27.5 Low 27.6-33.3 Mean Corpuscular Hemo Concen 32.8 32.0-36.0 RDW 11.5 Low 11.6-13.7 Mean Platelet Volume 7.5 5.5-11.0 Anti Gliadin Igg And Iga AB 12/25/2013 Gliadin IgG <10.0 U 10 Gliadin IgA 26.1 U 11 Complete Blood Count 09/15/2013 WBC 5.1 x10^3/UL 3.6-9.6 RBC 5.23 x10^6/UL 3.90-5.70 HGB 13.6 g/dL 12.1-17.2 HCT 44 % 36-50 MCV 83.0 fL 82.2-97.4 MCH 26.0 pg Low 27.6-33.3 MCHC 31.1 g/dL Low 33.0-35.5 RDW 12.4 % 11.6-13.7 PLT 470 x10^3/UL High 150-400 MPV 9.3 fL 7.4-10.4 Gran # 2.7 x10^3/UL 1.5-7.2 Lymph# 2.1 x10^3/UL 0.7-4.9 Garrett# 0.3 x10^3/UL 0.1-0.9 Gran % 51.9 % 42.2-75.2 Lymph % 41.1 % 20.5-51.1 Garrett% 7.0 % 1.7-9.3 Comprehensive Metabolic Prof 09/15/2013 Sodium 141 mEq/L 134-149 Potassium 4.8 mEq/L 3.6-5.5 Chloride 100 mEq/L 94-112 Carbon Dioxide 25 mEq/L 21-32 Glucose 85 mg/dL 70-105 BUN 21 mg/dL 6-26 Creatinine 1.3 mg/dL 0.6-1.4 BUN/Creat Ratio 16.2 CALC 8.0-36.0 Calcium 9.6 mg/dL 8.6-10.2 Total Protein 7.9 g/dL 6.3-8.1 Albumin 4.6 g/dL 3.8-5.5 Globulin 3.3 g/dL 2.0-4.8 A/G Ratio 1.4 CALC 0.6-2.3 Alk. Phosphatase 81 U/L 22-95 Alt (SGPT) 53 U/L High 10-40 12 Ast (Sgot) 31 U/L 5-34 Total Bilirubin 0.5 mg/dL 0.2-1.3 CBC Auto Diff 09/11/2011 White Blood Count 7.2 CUMM 4.8-10.8 Red Cell Count 5.98 CUMM 4.6-6.2 Hemoglobin 17.0 g/dL 14.0-18.0 Hematocrit 50 % 42-52 Mean Corpuscular Volume 83 um3 80-94 Mean Corpuscular Hemoglob 28 pg 27-31 Mean Corpuscular HGB Cone 34 g/dL 32-36 Redcell Distribution WDTH 13 % 10.5-15 Platelet Count 225 CUMM 150-450 Mean Platelet Volume 8.6 um3 7.4-10.4 Gran % 68.7 % 38-83 Lymph % 16.9 % Low 25-47 Mononuclear % 11.5 % High 1-9 Eosinophil % 2.7 % 0-6 Basophil % 0.2 % 0-2 Abs Lymphs 1.2 1.0-4.8 Abs Mononuclear 0.8 0-0.8 Absolute Neutrophil Count 4.9 1.5-7.7 Abs Eosinophils 0.2 0-0.6 Abs Basophils 0 0-0.2 13 Comp Metabolic Panel 09/11/2011 Sodium 138 mmol/L 135-145 Potassium 3.2 mmol/L Low 3.5-5.0 Chloride 104 mmol/L 101-111 Co2 (Carbon Dioxide) 24.0 mmol/L 22-32 Anion Gap 10.0 mmol/L 2-11 14 Glucose 96 mg/dL 70-100 BUN 18 mg/dL 6-24 Creatinine 1.0 mg/dL 0.50-1.40 One Over Creatinine 1.00 BUN/Creatinine Ratio 18.0 8-20 Calcium 9.1 mg/dL 8.1-9.9 Total Protein 7.8 GM/DL 6.2-8.1 Albumin 4.0 GM/DL 3.6-5.4 Globulin 3.8 GM/DL 2-4 Albumin/Globulin Ratio 1.1 1-3 Bilirubin Total 0.6 mg/dL 0.4-1.5 15 Alkaline Phosphatase 79 U/L 50-176 Alt (SGPT) 24 U/L 17-63 Ast (Sgot) 16 U/L 12-42 eGFR Non- 94.3 > 60 eGFR 121.3 > 60 16 Laboratory test finding 09/11/2011 Amylase 59 U/L 20-120 17 Lipase 20 U/L Low 22-51 Urinalysis W/Microscopic 09/11/2011 Ua Color PATRICIA Yellow Appearance-Urine CLEAR Clear Specific [place]-Ur 1.034 High 1.010-1.030 Esterase-Urine NEGATIVE Negative Nitrite NEGATIVE Negative Omjuilnqcrpy-Gb-HGF NEGATIVE Negative Protein-Urine 1+ Negative PH-Urine 5.5 5-9 Blood-Urine NEGATIVE Negative Ketones-Urine 1+ Negative Bilirubin-Ur SEE ICTOTEST Negative Glucose-Urine NEGATIVE Negative RBC-Urine 0-2 0-2 Mucus Urine LARGE None Epith Cells-Ur RARE None Laboratory test finding 09/11/2011 Ictotest NEGATIVE 18 Comp Metabolic Panel 05/09/2011 Sodium 140 mmol/L 135-145 Potassium 3.7 mmol/L 3.5-5.0 Chloride 106 mmol/L 101-111 Co2 (Carbon Dioxide) 27.0 mmol/L 22-32 Anion Gap 7.0 mmol/L 2-11 19 Glucose 84 mg/dL 70-100 BUN 19 mg/dL 6-24 Creatinine 1.0 mg/dL 0.50-1.40 One Over Creatinine 1.00 BUN/Creatinine Ratio 19.0 8-20 Calcium 9.1 mg/dL 8.1-9.9 Total Protein 5.9 GM/DL Low 6.2-8.1 Albumin 4.2 GM/DL 3.6-5.4 Globulin 1.7 GM/DL Low 2-4 Albumin/Globulin Ratio 2.5 1-3 Bilirubin Total 0.5 mg/dL 0.4-1.5 20 Alkaline Phosphatase 80 U/L 50-176 Alt (SGPT) 62 U/L 17-63 Ast (Sgot) 35 U/L 12-42 eGFR Non- 95.3 > 60 eGFR 122.5 > 60 21 Laboratory test finding 05/09/2011 Troponin-I 0 NG/ML 0-0.06 22 CBC Auto Diff 05/09/2011 White Blood Count 5.2 CUMM 4.8-10.8 Red Cell Count 5.66 CUMM 4.6-6.2 Hemoglobin 15.7 g/dL 14.0-18.0 Hematocrit 47 % 42-52 Mean Corpuscular Volume 83 um3 80-94 Mean Corpuscular Hemoglob 28 pg 27-31 Mean Corpuscular HGB Cone 33 g/dL 32-36 Redcell Distribution WDTH 13 % 10.5-15 Platelet Count 221 CUMM 150-450 Mean Platelet Volume 8.9 um3 7.4-10.4 23 Manual Differential 05/09/2011 Polysegmented Neutrophil 50 % 38-83 Lymphocyte 40 % 25-47 Monocyte 7 % 0-13 Eosinophil 2 % 0-6 Atypical Lymph 1 % 0-6 Absolute Neutrophil Count 2.6 Anisocytosis SLIGHT Laboratory test 01/08/2011 [facility] Test SURGICAL PATH finding REPORT Laboratory test 12/22/2010 C Reactive Protein < 0.5 mg/dL Less Than 0.5 finding Lead 12/22/2010 Lead 1.4 g/dL 0-25.0 24 Lead Specimen Type VENOUS Stool Culture 12/22/2010 O P: Giardia/Crypto Screen NEGATIVE BY IMMU < SEE 25 NOTE> C. Difficile Toxin A B NEGATIVE BY IMMU <SEE NOTE> 26 Stool Specimen Description GREENISH BROWN 27 O P: Giardia/Crypto 12/22/2010 O P: Giardia/Crypto Giardia and cryp 28 Screen Screen <SEE NOTE> O P: Giardia/Crypto Screen NEGATIVE BY IMMU <SEE NOTE> 29 Stool Specimen Description GREENISH BROWN 30 Laboratory test finding 12/22/2010 C. Difficile Toxin A B NF 31 Stool Cult Sensitivity NF 32 Shiga Toxin 1 And 2 (Ehec) NEGATIVE BY IMMU <SEE NOTE> 33 Urine Porphobilinogen 12/22/2010 Porphobilinogen Urine 0.4 mcmol/L <= 1.3 Random Random Porphobilinogen Interp . () 34 Laboratory test finding 09/30/2010 [facility] Test celiac panel Comprehensive Metabolic Prof 06/16/2010 Albumin 4.8 g/dL 3.8-5.5 Alk. Phos. 78 U/L 22-95 Alt (SGPT) 48 U/L High 10-40 35 Ast (Sgot) 25 U/L 5-34 BUN 19 mg/dL 6-26 Calcium 9.7 mg/dL 8.6-10.2 Chloride 105 mEq/L 94-112 Creatinine 0.9 mg/dL 0.6-1.4 Carbon Dioxide 28 mEq/L 21-32 Glucose 82 mg/dL 70-105 Sodium 137 mEq/L 134-149 Total Bilirubin 0.4 mg/dL 0.2-1.3 Total Protein 7.9 g/dL 6.3-8.1 Potassium 4.3 mEq/L 3.6-5.5 Globulin 3.1 g/dL 2.0-4.8 A/G Ratio 1.6 Calc 0.6-2.2 BUN/Creat Ratio 21.3 Calc 8.0-36.0 Laboratory test finding 06/16/2010 [employer] ABO TYPE <SEE 36, 37 NOTE> C-Reactive Protein <0.1 mg/dL 0.0-0.5 36 Hla-B27 Disease 06/16/2010 Hla-B27 Negative 36, 38 Association Anti Dna (SS) Igg, AB 06/16/2010 Anti-Dna(SS)IgG, Ab, <20 EU 0-19 36 , 39 Qn Laboratory test finding 06/16/2010 TSH 2.52 mIU/L 0.50-6.00 Laboratory test finding 06/16/2010 Sed Rate 7mm (Fma/CMC/Centrex) CBC (a) 06/16/2010 WBC 3.6 3.6-9.6 RBC 5.12 3.90-5.70 Hemoglobin (Fma/CMC/CTX) 14.3 g/dL 12.1 - 17.2 Hematocrit (Fma/CMC/CTX) 42.8 % 36.1 - 50.3 Platelets 215 10^3/ul 150-400 Lymph% 45.9 20.5-51.1 Mixed% 6.3 Neutrophils % 47.8 Mean Corpuscular Vol 84 82.2-97.4 Mean Corpuscular Hemoglobin 27.9 27.6-33.3 Mean Corpuscular Hemo Concen 33.4 32.0-36.0 RDW 12.7 11.6-13.7 Mean Platelet Volume 8.4 6.5-11.0 Celiac Disease Comp PNL 06/16/2010 Deamidated Gliadin Abs, 35 units High 0 -19 36, 40 IgA Deamidated Gliadin Abs, IgG 3 units 0-19 36, 41 t-Transglutaminase (tTG) IgA <2 U/mL 0-3 36, 42 t-Transglutaminase (tTG) IgG <2 U/mL 0-5 36, 43 Endomysial Antibody IgA Negative Negative 36 Immunoglobulin A, Qn, Serum 305 mg/dL 70-400 36 Antiextractable Nuclear Ag 06/16/2010 SPLITTING MACHINE TENDER Antibodies <0.2 AI 0.0-0.9 36 Cervantes Antibodies <0.2 AI 0.0-0.9 36 Laboratory test finding 06/16/2010 Gamma gt 49 U/L 5-71 36 Patricia Panel Complete Thermal 06/16/2010 Antinuclear Abs, Ifa Negative 36, 44 Rheumatoid Arth Factor 5.7 IU/mL 0.0-13.9 36 Anti Dsdna Antibodies <1 IU/mL 0-9 36, 45 Laboratory test finding 03/10/2010 Stool Cult Sensitivity NF 46 Shiga Toxin 1 And 2 (Ehec) NEGATIVE BY IMMU <SEE NOTE> 47 Culture Stool 03/10/2010 Stool Specimen Description YELLOW BROWN 48 Campylobacter Culture NF 49 Surgical Pathology 11/11/2009 Surgical Pathology <SEE 50 NOTE> Laboratory test 05/08/2008 Throat - Beta NEGATIVE @ 48HS finding Strep Fma Laboratory test 06/30/2007 Quickstrep NEGATIVE Negative finding Throat - Beta Strep Fma NEG @ 48 HOURS Ua - Non Micro (Fma) 01/08/2007 Appearance CLEAR Color LT YELLOW Glucose NEG Bilirubin NEG Ketones NEG SP Grav 1.020 Blood NEG PH 5.5 Protein NEG Urobil 0.2 Nitrite NEG Leukocytes (Fma/CMC/Centrex) NEG Laboratory test 03/18/2006 [facility] LFT;CBC;ACID FAST See Image finding Report Laboratory test 03/18/2006 Fungal Cult NO GROWTH OF MY 51, 52 finding Other Sources <SEE NOTE> CBC ([place]) 01/02/2006 WBC 6.8 3.6-9.6 (Fma) New RBC 5.82 High 3.90-5.70 Hemoglobin (Fma/CMC/CTX) 15.6 g/dL 12.1 - 17.2 Hematocrit (Fma/CMC/CTX) 47 % 36.1 - 50.3 Mean Corpuscular Vol 81.3 Low 82.2-97.4 Mean Corpuscular Hemaglobin 26.8 Low 27.6-33.3 Mean Corpuscular Hemo Concen 33.0 33.0-36.0 RDW 13.2 11.6-13.7 Platelets 272 10^3/ul 150-400 Mean Platelet Volume 8.3 7.4-10.4 Auto-Diff - Gran# 4.9 1.5-7.2 Lymph# 1.7 0.7-4.9 Monocytes 0.2 10^3/uL 0.1 - 0.9 Gran% 71.9 42.2-75.2 Lymph% 25.6 20.5-51.1 Monocytes 2.5 % 1.7-9.3 Patricia Panel Complete Thermal 01/02/2006 Antinuclear AB (Patricia) NEGATIVE Negative 53 Rheumatoid Factor (RF) <11.0 IU/mL 0.0-20.0 53 Anti Dna (DS) 37.42 IU/mL <30 53, 54 Antiextractable Nuclear Ag 01/02/2006 SPLITTING MACHINE TENDER Antibodies 5 U/ml Negative 53 , 55 (Cervantes/SPLITTING MACHINE TENDER) Cervantes Antibodies 6 U/ml Negative 53, 56 Anti Dna (SS) 01/02/2006 Anti-Dna(SS)IgG, Ab, Qn 24 EU High 0-19 53, 57 Igg, AB Hla-B27 01/02/2006 Hla-B27 Negative 53, 58 Profile Lyme Igg/M 01/02/2006 Lyme IgG/IgM Ab <0.91 index 0.00-0.90 53, 59 W/Reflx [place] Ab Interp.,Eia DNR 53 Lyme Ab Interp.,Eia DNR 53 Lyme Disease Ab, Quant, IgM <0.91 index 0.00-0.90 53, 60 Lyme Ab IgM Interp., Eia DNR 53 Lyme Ab IgM Interp., Eia DNR 53 Laboratory test finding 04/17/2005 Throat - Beta Strep POSITIVE @ 24HRS Laboratory test finding 08/14/2004 [facility] C&S NO GROWTH DAY 2 Final Laboratory test finding 07/04/2004 Throat - Beta Strep NEGATIVE@48HRS Ua - Non Micro ([facility]) 02/23/2004 Appearance CLEAR Color LT YELLOW Glucose NEG Bilirubin NEG Ketones NEG SP Grav 1.025 Blood NEG PH 5.5 Protein SSA NEG Urobil 0.2 Nitrite NEG Leukocytes NEG Ua - Micro (a [facility]) 02/09/2004 Appearance CLEAR Color LIGHT YELLOW Glucose, Urine (Fma/CMC/CTX) NEGATIVE Bilirubin NEGATIVE Ketones NEGATIVE SP Grav >=1.030 Blood NEGATIVE PH 5.0 Protein SSA TRACE Urobil 0.2 Nitrite NEGATIVE Leukocytes (Fma/CMC/Centrex) NEGATIVE Hyaline - /Lpf Granular - /Lpf WBC'S 0-1 RBC'S 0-1 Mucus (Fma/CBC/Centrex) SMALL AMOUNT /Lpf Epith RARE Bacteria - Amorphous (Fma/CMC/Centrex) - /Lpf Crystals, Urine (Fma/CMC/CTX) OCC CA+ OXALATE /Lpf Comments - Ua - Non Micro (a New) 01/19/2004 Appearance CLEAR Color LT YELLOW Glucose NEG Bilirubin NEG Ketones NEG SP Grav 1.025 Blood NEG PH 7.0 Protein SSA 3+ Urobil 0.2 Nitrite NEG Leukocytes NEG CBC Electronic [place] 01/27/2003 WBC 8.9 CUMM 4.8-14.5 RBC 5.25 CUMM 3.9-5.3 Hemoglobin (Fma/CMC/CTX) 14.1 g/dL High 11.5-14.0 Hematocrit (Fma/CMC/CTX) 42 % High 34-40 Mean Corpuscular Vol 80 UM3 77-95 Mean Corpuscular Hemaglobin 27 pg 25-33 Mean Corpuscular Hemo Concen 34 g/dL 31-36 RDW 12 10.5-15 Platelets 263 CUMM 150-450 Mean Platelet Volume 7.2 Low 7.4-10.4 Granulocytes 62.6 % 38-83 Lymphocytes 23.1 % 20-45 Monocytes 12.1 % High 1-9 Eosinophil 0.5 0-6 Basophil% 1.7 0-2 Abs Lymphs 2.1 1.5-7.0 Abs Mononuclear 1.1 High 0-0.8 Abs Grans 5.5 1.5-8.0 Abs Eosinophils 0 0-0.6 Abs Basophils 0.2 0-0.2 Ua - Non Micro (Fma New) 01/26/1999 Appearance YEL CLEAR SP Grav 1.030 Esterase - Nitrite - pH 6.0 Protein - Glucose - Ketones - Urobil - Bilirubin - Laboratory test finding 01/26/1999 Hematocrit 38 1 consistent w/ previous results 2 Low risk: <1.00 Average risk: 1.00-3.00 High risk: >3.00 3 POUR OFF SERUM 4 Negative <0.9 Indeterminate 0.9 - 1.0 Positive >1.0 5 Negative <9.0 Equivocal 9.0 - 11.0 Positive >11.0 6 Negative <9.0 Equivocal 9.0 - 11.0 Positive >11.0 This test was developed and its performance characteristics determined by [facility] [employer]. It has not been cleared or approved by the Food and Drug Administration. Results of this test are for investigational purposes only. The result should not be used as a diagnostic procedure without confirmation of the diagnosis by another medically diagnostic product or procedure. 7 RESULTS VERIFIED BY REPEAT ANALYSIS 8 RESULTS VERIFIED BY REPEAT ANALYSIS 9 RESULTS VERIFIED BY REPEAT ANALYSIS 10 -- REFERENCE VALUE -- <20.0 (Negative) Test Performed by: [place] [address] Chief Passenger Ship Steward/Stewardess: Higinio Trujillo III, M.D. 11 Interpretation: Weak Positive (20.0-30.0) -- REFERENCE VALUE -- <20.0 (Negative) 12 RESULTS VERIFIED BY REPEAT ANALYSIS 13 Lymphopenia % 14 Anion gap measurement may be of limited value in the presence of any alkalosis, especially in a combined acid base disorder. . 15 A metabolite of Naproxen, O-desmethylnaproxen, has been shown to interfere with the Jendrassik-Sandy method for measuring total bilirubin. Samples from patients who have taken Naproxen have shown spurious elevation in total bilirubin levels. 16 Because ethnic data is not always readily available, this report includes an eGFR for both -Americans and non- Americans. The National Kidney Disease Education Program (NKDEP) does not endorse the use of the MDRD equation for patients that are not between the ages of 18 and 70, are , have extremes of body size, muscle mass, or nutritional status, or are non- or non-. According to the National Kidney Foundation, irrespective of diagnosis, the stage of the disease is based on the level of kidney function: Stage Description GFR(mL/min/1.73 m(2)) 1 Kidney damage with normal or decreased GFR 90 2 Kidney damage with mild decrease in GFR 60-89 3 Moderate decrease in GFR 30-59 4 Severe decrease in GFR 15-29 5 Kidney failure <15 (or dialysis) 17 PLEASE NOTE NEW REFERENCE RANGE. 18 ICTOTEST IS A QUALITATIVE CONFIRMATORY TEST FOR BILIRUBIN. 19 Anion gap measurement may be of limited value in the presence of any alkalosis, especially in a combined acid base disorder. . 20 A metabolite of Naproxen, O-desmethylnaproxen, has been shown to interfere with the Jendrassik-Summerfield method for measuring total bilirubin. Samples from patients who have taken Naproxen have shown spurious elevation in total bilirubin levels. 21 Because ethnic data is not always readily available, this report includes an eGFR for both -Americans and non- Americans. The National Kidney Disease Education Program (NKDEP) does not endorse the use of the MDRD equation for patients that are not between the ages of 18 and 70, are , have extremes of body size, muscle mass, or nutritional status, or are non- or non-. According to the National Kidney Foundation, irrespective of diagnosis, the stage of the disease is based on the level of kidney function: Stage Description GFR(mL/min/1.73 m(2)) 1 Kidney damage with normal or decreased GFR 90 2 Kidney damage with mild decrease in GFR 60-89 3 Moderate decrease in GFR 30-59 4 Severe decrease in GFR 15-29 5 Kidney failure <15 (or dialysis) 22 New Reference Range and Interpretation effective 02/27/2002 TnI (ng/ml) INTERPRETATION Less Than 0.06 ng/mL NOT SUPPORTIVE OF DIAGNOSIS OF AR 0.06 - 0.50 ng/ml INDETERMINATE: SUGGEST SERIAL STUDIES IF CLINICALLY INDICATED. Greater than 0.5 ng/mL CONSISTENT WITH DIAGNOSIS OF AR . 23 Neutropenia % Lymphocytosis % 24 CDC CLASSIFICATIONS FOR BLOOD LEAD CONCENTRATION SCREENING IN CHILDREN: CDC CLASS* BLOOD LEAD CONCENTRATION (MCG/DL) I LESS THAN OR EQUAL TO 9 IIA 10 - 14 IIB 15 - 19 III 20 - 44 IV 45 - 69 V GREATER THAN OR EQUAL TO 70 *REFER TO CURRENT CDC GUIDELINES FOR COMMENTS AND INTERVENTIONS RECOMMENDED FOR EACH CLASS. CERTIFICATE OF BLOOD LEAD TESTING THIS IS TO CERTIFY THAT THE ABOVE NAMED PATIENT HAS BEEN TESTED FOR BLOOD LEAD. TESTING WAS PERFORMED BY [facility] WHICH IS LICENSED BY [facility] TO PERFORM BLOOD LEAD TESTING. THIS CERTIFICATE IS PROVIDED A SERVICE TO OUR CLIENTS AND THEIR PATIENTS WHO MAY BE REQUIRED TO PRODUCE DOCUMENTATION OF BLOOD LEAD TESTING. . 25 NEGATIVE BY IMMUNOASSAY NEGATIVE BY IMMUNOASSAY 26 NEGATIVE BY IMMUNOASSAY 27 PASTY NONFORMED 28 Giardia and cryptosporidium antigen testing performed by immunoassay. If patient is immunocompromised or has traveled to or is from a developing country, a full ova and parasite exam with microscopic (OPMIC) is recommended. All samples will be held one month in case full ova and parasite testing is requested. Contact the Microbiology Department at [phone]. TEST LIMITATIONS: As with all diagnostic procedures, the results obtained should be used in conjunction with other clinical information available the physician. Negative results can occur in samples containing antigen below lower limits of detection of the assay. The use of colonic washes, aspirates or other diluted sample types has not been established and could affect the performance of the assay. Stool samples contaminated with an oily or particulate base (eg. Barium, mineral oil etc.) could interfere with the test and are not recommended. 29 NEGATIVE BY IMMUNOASSAY NEGATIVE BY IMMUNOASSAY 30 PASTY NONFORMED 31 NO GROWTH OF CAMPYLOBACTER AFTER 48 HOURS 32 NEGATIVE FOR THE ENTERIC PATHOGENS - SALMONELLA, SHIGELLA, AEROMONAS, PLESIOMONAS AND YERSINIA. VIBRIO AND E. COLI 0157 NOT ROUTINELY TESTED FOR IN A STOOL CULTURE. PLEASE SUBMIT SAMPLE WITH SPECIFIC REQUEST FOR DESIRED ORGANISM(S). 33 NEGATIVE BY IMMUNOCHROMATOGRAPHIC ASSAY NEGATIVE BY IMMUNOCHROMATOGRAPHIC ASSAY 34 In this urine sample, the excretion of porphobilinogen was normal. Test Performed by: [facility] [address] [place] [id number] Chief Passenger Ship Steward/Stewardess: Higinio Trujillo III, M.D. 35 RESULT BECKIE'D 36 FASTING; 1 LAV; 2 PINK TOP; 5 SST LAB: FASTING; 1 LAV; 2 PINK TOP; 5 SST 37 ABO TYPE O 06/17/10 00:53 PROV1 38 This test was performed using PCR (Polymerase Chain Reaction)/SSOP (Sequence Specific Oligonucleotide Probes) technique. SBT (Sequence Based Typing) and/or SSP (Sequence Specific Primers) may be used as supplemental methods when necessary. Please contact [facility] Customer Service at if you have any questions. . Director of [facility] Dr John Paul Stockton, PhD 39 Negative: <20 Borderline: 20 - 25 Positive: >25 40 Negative 0 - 19 Weak Positive 20 - 30 Moderate to Strong Positive >30 41 Negative 0 - 19 Weak Positive 20 - 30 Moderate to Strong Positive >30 42 Negative 0 - 3 Weak Positive 4 - 10 Positive >10 . Tissue Transglutaminase (tTG) has been identified as the endomysial antigen. Studies have demonstr- ated that endomysial IgA antibodies have over 99% specificity for gluten sensitive enteropathy. 43 Negative 0 - 5 Weak Positive 6 - 9 Positive >9 44 Negative <1:80 Borderline 1:80 Positive >1:80 45 Negative <5 Equivocal 5 - 9 Positive >9 46 NEGATIVE FOR THE ENTERIC PATHOGENS - SALMONELLA, SHIGELLA, AEROMONAS, PLESIOMONAS AND YERSINIA. VIBRIO AND E. COLI 0157 NOT ROUTINELY TESTED FOR IN A STOOL CULTURE. PLEASE SUBMIT SAMPLE WITH SPECIFIC REQUEST FOR DESIRED ORGANISM(S). 47 NEGATIVE BY IMMUNOCHROMATOGRAPHIC ASSAY NEGATIVE BY IMMUNOCHROMATOGRAPHIC ASSAY 48 SOFT SEMI-FORMED PASTY 49 NO GROWTH OF CAMPYLOBACTER AFTER 48 HOURS 50 ---- RUN DATE: 11/15/09 [facility] NMI LIVE PAGE 1 RUN TIME: 1438 Specimen Inquiry RUN USER: INTERFACE -- Name: INNA VILLEGAS Status: REG REF Re11/11/09 Age/Sex: 19/M Unit#: [id number] Location: [address] [place] [address]. : 89 -- Specimen: [id number] SOUT Spec Date: 11/11/[address]: Lui Cardoso MD Spec Type: SURGICAL P Received: 11/14/09-2800 Copies to: Tunde combs MD SPECIMEN RANDOM COLON BIOPSIES HISTORY POST-OP DIAGNOSIS: Negative colon and terminal ileum CLINICAL INFORMATION: Chronic diarrhea GROSS DESCRIPTION The specimen is received in formalin labelled Inna Villegas Random Colon Biopsies, and consists of several fragments of jama-yellow tissue each measuring 0.2 x 0.2 x 0.2 cm. Submitted entirely, one cassette. DIAGNOSIS Random colon, biopsies: Fragments of large bowel mucosa with no significant pathologic changes. Signed Electronically by: SONI JUAREZ 11/15/09 1438 -- -- DEPARTMENT OF PATHOLOGY, [address] [place] [address] [facility] Permit #[id number] Zeus Salgado M.D. Director Soni Juarez M.D. Rehabilitation Teacher Dir mukesh -- 51 LEFT DORSAL WRIST TISSUE 52 NO GROWTH OF MYCOTIC ORGANISMS AFTER 3 WEEKS 53 1 yellow, 2 lg sst 54 < 30 Negative 30-75 Equivocal > 75 Positive . Confirmed on reassay . . 55 < 10 Negative > or=10 Positive 56 < 10 Negative > or=10 Positive 57 Negative: <20 Borderline: 20 - 25 Positive: >25 58 This test was performed using PCR (Polymerase Chain Reaction)/SSOP (Sequence Specific Oligonucleotide Probes) technique. SBT (Sequence Based Typing) and/or SSP (Sequence Specific Primers) may be used as supplemental methods when necessary. Please contact [facility] Customer Service at if you have any questions. . Director of [facility] Dr John Paul Stockton, PhD 59 Negative <0.91 Equivocal 0.91 - 1.09 Positive >1.09 Note: The CDC currently advises that Western blot testing be performed following all equivocal or positive EIA results. Final diagnosis should include appropriate clinical findings and a positive EIA which is also positive by Western blot. 60 Negative <0.91 Equivocal 0.91 - 1.09 Positive >1.09 . Note: IgM levels may peak at 3-6 weeks post infection, then gradually decline. FDA currently advises that Western Blot testing be performed following all equivocal or positive EIA results. Final diagnosis should include appropriate clinical findings and a positive EIA which is also positive by Western Blot. Procedures Date CPT Code Description Status 01/08/2011 Colonoscopy Completed 12/22/2010 Colonoscopy Completed 11/11/2009 Colonoscopy Completed 10/16/2001 30162 Pulse Oximetry Completed 09/30/2001 11509 Remove Impacted Cerumen Completed Encounters Type Date Location Provider CPT E/M Dx Office Visit 05/15/2017 2:45p [facility] Office [place] [address] R05 R50.9 M79.1 J02.9 Office Visit 04/02/2016 4:10p [facility] Tunde Rucker M.D. 29076 R19.5 Office Visit 09/22/2015 8:00a Main Office [place] [address] K58.9 R19.7 R10.84 Office Visit 08/31/2015 8:00a [facility] Office [place] [address] K58.9 R19.7 R10.84 Office Visit 03/02/2015 2:20p Main Office Inderjit Ibarra M.D. 30753 J30.1 Office Visit 02/07/2015 2:30p [place] [address] 784.0 920 E917.4 Office Visit 10/07/2014 9:00a Main Office [place] 08449 890.0 E849.0 E917.4 V06.5 Office Visit 06/04/2014 3:40p [facility] Inderjit Ibarra M.D. 68531 569.3 Office Visit 04/07/2014 4:20p Main Office Inderjit Ibarra M.D. 02762 564.1 Office Visit 12/25/2013 2:50p [facility] Inderjit Ibarra M.D. 51344 564.1 V15.02 579.0 Office Visit 11/25/2013 4:20p Main Office Inderjit Ibarra M.D. 85563 493.90 Office Visit 09/15/2013 12:00p Main Office Nikkie Sheldon, FUR BLENDER 90980 564.1 789.07 Office Visit 02/04/2012 2:50p [facility] Tunde Rucker M.D. 94913 564.1 289.0 Office Visit 07/23/2011 10:00a [facility] Tunde Rucker M.D. 77586 564.1 Office Visit 09/22/2010 1:00p [facility] Miriam GironYue-C 94891 528.00 Office Visit 06/15/2010 8:00p Main Office Tunde Rucker M.D. 33735 787.91 Office Visit 03/02/2010 9:15a [facility] Belem Castillo [facility] 99847 787.91 V04.81 Office Visit 11/03/2009 1:00p [facility] Office [place] 83395 787.91 Office Visit 11/05/2008 11:30a [facility] Miriam GironYue-C 76543 682.8 Office Visit 05/08/2008 1:00p Main Office Perry Hahn M.D. 63029 462 465.9 Office Visit 06/30/2007 1:50p Main Office Leland Freire M.D. 05069 462 Office Visit 02/05/2007 3:10p [facility] Tunde Rucker M.D. 81757 719.47 Office Visit 01/08/2007 2:10p [facility] Tunde Rucker M.D. 69131 V70.3 564.1 308.0 719.45 Office Visit 11/28/2006 7:30p Main Office Tunde Rucker M.D. 24728 719.45 Office Visit 03/05/2006 4:00p [facility] Jaskaran Frazier M.D. 55955 998.89 Office Visit 01/02/2006 10:20a [facility] Tunde Rucker M.D. 57925 524.9 729.9 Office Visit 04/17/2005 9:45a [facility] Cierra Falconizabella jaciel-C 51982 465.9 462 Office Visit 10/31/2004 6:15p Main Office Lucy Paul Franck [facility] 08010 524.60 995.3 Office Visit 07/04/2004 1:45p [facility] Cierra Aidannatasha jaciel-C 01222 462 Office Visit 01/19/2004 1:40p Main Office Tunde Rucker M.D. 76524 V70.3 789.00 V06.5 Office Visit 09/14/2003 11:30a [facility] Office Cierra Aidannatasha jaciel-C 57943 784.7 Office Visit 04/14/2003 4:00p Main Office Cierra Arreola jaciel-Cayla 60347 729.5 V04.8 Office Visit 11/25/2002 2:20p [facility] Tunde Rucker M.D. 73809 V20.2 Office Visit 08/10/2002 10:45a Main Office Cierra Aidannatasha jaciel-Cayla 16782 724.5 Office Visit 04/15/2002 2:10p [facility] Tunde Rucker M.D. 43977 706.3 826.0 Office Visit 10/16/2001 6:10p Main Office Tunde Rucker M.D. 43591 Office Visit 09/08/2001 4:00p Main Office Leon Gonsales M.D. 94880 Office Visit 01/01/2000 6:15p Main Office [place] [address] Plan of Care 05/23/2017 - Reva Ren, NPJ20.9 Acute bronchitis, unspecifiedNew Medication:Benzonatate 200 mgNew Xrays:Chest 2 ViewsComments:I think it is likely that your cough is leftover from a viral infection, and symptoms may take several weeks to go away.R19.7 Diarrhea, unspecifiedNew Labs:C Diff Toxin Dna PCR QL StoolStool Cult W/E.Coli (CTX)Comments:Please complete the stool studies and the chest x-ray.If you need treatment, we will let you know. If you are not markedly improved by Saturday, please call and come back.
--- OUTSIDE RECORDS SUMMARY | 2017-06-08 10:39 | XMS REPORT ---
:1990 External Reference #:[id number] Author Organization [facility] Address [address] [place] [address] Phone [phone] Care Team Providers Name Role Phone Tunde Rucker MD Care Team Information Engine Repair Supervisor Unavailable Tunde Rucker MD Primary Care Physician Unavailable Payers Type Date Identification Numbers Payment Provider Subscriber Commercial Policy Number: [id number] [facility] Inna Villegas Group Number: [id number] [address] PayID: [id number] [place] [address] Problems Date Description Provider Status Onset: 07/23/2011 [...] Form Strength Qnty SIG Indications Ordering Provider Lomotil 08/30/ Active Tablets 2.5-0.025 120ta 2 tabs po R19.7 Nikkie 2016 mg bs qid prn Pito, diarrhea; 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 mcg/Act hours as needed for cough or shortness of breath Dicyclomine HCL 09/15/ Active Capsules 10mg 40cap 1 tab by Nikkie 2013 s mouth 2 Pito, times per AUTO BODY SERVICE MECHANIC day as needed cramping, pain in abdomen Nortriptyline 04/07/ Hx Capsules 25mg 30cap Take One K58.0 Inderjit Fred HCL 2013 - s Capsule By Michael 08/30/ Mouth One 2016 Time Daily In The P.M. Doxycycline 03/12/ Hx Capsules 100mg 20cap take one Leon F. Hyclate 2011 - capsule by Ilda, 03/22/ mouth twice M.D. 2011 a day Zofran Odt 09/08/ Hx Tablets 4mg 20tab 1 q 6 hrs Perry Guzmán 2011 - Dispers s prn nausea Midura, 02/03/ M.D. 2011 Proair HFA 09/05/ Hx Aerosol 108(90Bas 3unit 2 puffs 20 Tunde A. 2011 - e) mcg/ac s minutes Darlow, 09/15/ prior to M.D. 2013 exercise Tetracycline 09/22/ Hx Capsules 250mg 15cap disolve in 528.00 Miriam HCL 2010 - s water 2-3 Bree, 09/27/ x/day x 5 Afnp-C 2010 days HC Pram Cream 03/02/ Hx 1% 1Oz Apply two 787.91 Tunde A. 2009 - to three Darlow, 06/15/ times a day M.D. 2010 Augmentin 11/05/ Hx Tablets 500mg 20tab 1 po bid 682.8 Miriam 2008 - s with food x Bree, days Afnp-C 2008 Zithromax 05/08/ Hx Tablets 250mg 6Tabs 2 po qd Perry Guzmán 2007 - today , Jovani, 11/05/ then 1 po M.D. 2008 qd times 4 Zithromax 06/30/ Hx Tablets 250mg 1tabs 2 po qd 462 Ha ANadira 2007 - today Mouna, 05/08/ then 1 po M.D. 2007 qd times 4 Tylenol/Codeine 06/30/ Hx Tablets #3 20tab one tab po 462 Ha A. #3 2007 - s every six Mouna, 05/08/ hours prn M.D. 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 2006 Gym 08/10/ Hx Should Be Cierra 2002 - Out Of Gym [facility], 08/13/ Until Afnp-C 200208/13/02 Gym Hx May Return Tunde Nixon 2001 - To Gym Darlow, 04/30/ M.D. 2001 [facility] [place] Tar 04/15/ Hx 1Bott Twice Tunde Catalan 2001 - le Weekly Darlow, 11/25/ M.D. 2002 Foradil 10/16/ Hx 12mcg 2unit 1 Tunde Nixon 2001 - s Inhalation Darlow, 11/25/ bid M.D. 2002 Note 10/16/ Hx 1 puff Of Tunde Nixon 2001 - Foradil 20 Darlow, 10/17/ Minutes M.D. 2001 Before Activity Bactroban 09/08/ Hx 15gm Apply tid Leon FNadira 2001 - Shallish, 09/09/ M.D. 2001 Elocon 09/08/ Hx Cream 0.1% 45gm Apply bid Leon FNadira 2001 - To Hands Shallish, 11/25/ M.D. 2002 protopic 04/01/ Hx 30gra 30gm tube Zeus Alfonso 2000 - m apply for Blumkin, 11/25/ not more M.D. 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 1999 To 07/08/99 Due To Subungual Hematoma Claritin Redi 05/18/ Hx 30uni One qd prn Zeus Alfonso Tabs 1998 - ts Allergies Blumkin, 10/25/ M.D. 1999 Valisone Cream 11/23/ Hx .1% 30gm Apply tid Zeus Alfonso 1997 - prn Blumkin, 11/25/ M.D. 2002 Nortriptyline / Hx Capsules 50mg 30cap 1 po qhs 564.1 Tunde ANadira HCL 0000 - s Chaim, 04/07/ M.D. 2013 Immunizations CPT Code Status Date Vaccine Lot # [id number] Given 10/07/2014 Tetanus And Diptheria Adult Preservative Free [id number] >7Yrs 51923 Given 03/14/2014 DO Not Use Split Influenza Virus Vaccine 51213 Given 02/10/2011 DO Not Use Split Influenza Virus Vaccine 83913 Given 03/02/2010 DO Not Use Split Influenza Virus Vaccine [id number] 51385 Given 05/10/2009 H1N1 Virus Vaccine [id number] 33945 Given 05/10/2009 H1N1 Immunization Intramuscular/Intranasal W Counseling 17331 Given 03/24/2008 DO Not Use Split Influenza Virus Vaccine [id number] 48675 Given 03/22/2007 DO Not Use Split Influenza Virus Vaccine [id number] 03161 Given 04/01/2006 DO Not Use Split Influenza Virus Vaccine [id number] 61393 Given 04/01/2006 Tdap Tetanus, W Pertussis [id number] 12470 Given 05/16/2005 DO Not Use Split Influenza Virus Vaccine [id number] 13148 Given 01/19/2004 Td Immunization, For Use In Individuals 7 Years Or Older 34556 Given 04/14/2003 DO Not Use Split Influenza Virus Vaccine 53666 Given 04/14/2003 DO Not Use Split Influenza Virus Vaccine 33210 Given 06/30/1999 Hepatitis B Immunization, -19 Years 71942 Given 02/22/1999 Hepatitis B Immunization, -19 Years 27387 Given 01/20/1999 Hepatitis B Immunization, Trenary-19 Years Vital Signs Date Vital Result Comment 05/15/2017 BP Systolic 130 mmHg BP Diastolic [...] 3.5 x10^3/UL 1.5-7.2 Lymph# 1.9 x10^3/UL 0.7-4.9 [place]# 0.3 x10^3/UL 0.1-0.9 Gran % 59.7 % 42.2-75.2 Lymph % 34.8 % 20.5-51.1 [place]% 5.5 % 1.7-9.3 Laboratory test finding 04/02/2016 [...] 2.2 x10^3/UL 1.5-7.2 Lymph# 1.5 x10^3/UL 0.7-4.9 [place]# 0.2 x10^3/UL 0.1-0.9 Gran % 53.8 % 42.2-75.2 Lymph % 39.9 % 20.5-51.1 [place]% 6.3 % 1.7-9.3 Comprehensive Metabolic Prof 08/31/2015 [...] Total Bilirubin 0.3 mg/dL 0.2-1.3 CBC Electronic (Fma) 06/04/2014 WBC 5.3 3.6-9.6 RBC 5.34 3.90-5.70 [...] 2.7 x10^3/UL 1.5-7.2 Lymph# 2.1 x10^3/UL 0.7-4.9 [place]# 0.3 x10^3/UL 0.1-0.9 Gran % 51.9 % 42.2-75.2 Lymph % 41.1 % 20.5-51.1 [place]% 7.0 % 1.7-9.3 Comprehensive Metabolic Prof 09/15/2013 [...] U/L 5-34 Total Bilirubin 0.5 mg/dL 0.2-1.3 Laboratory test finding 09/11/2011 Ictotest NEGATIVE 13 Urinalysis W/Microscopic 09/11/2011 Ua Color PATRICIA Yellow Appearance-Urine CLEAR Clear Specific [place]-Ur 1.034 High 1.010-1.030 Esterase-Urine NEGATIVE Negative Nitrite NEGATIVE Negative [id number] NEGATIVE Negative Protein-Urine 1+ Negative PH-Urine 5.5 5-9 Blood-Urine NEGATIVE Negative Ketones-Urine 1+ Negative Bilirubin-Ur SEE ICTOTEST Negative Glucose-Urine NEGATIVE Negative RBC-Urine 0-2 0-2 Mucus Urine LARGE None Epith Cells-Ur RARE None Laboratory test finding 09/11/2011 Amylase 59 U/L 20-120 14 Lipase 20 U/L Low 22-51 Comp Metabolic Panel 09/11/2011 Sodium 138 mmol/L 135-145 Potassium 3.2 mmol/L Low 3.5-5.0 Chloride 104 mmol/L 101-111 Co2 (Carbon Dioxide) 24.0 mmol/L 22-32 Anion Gap 10.0 mmol/L 2-11 15 Glucose 96 mg/dL 70-100 BUN 18 mg/dL 6-24 Creatinine 1.0 mg/dL 0.50-1.40 One Over Creatinine 1.00 BUN/Creatinine Ratio 18.0 8-20 Calcium 9.1 mg/dL 8.1-9.9 Total Protein 7.8 GM/DL 6.2-8.1 Albumin 4.0 GM/DL 3.6-5.4 Globulin 3.8 GM/DL 2-4 Albumin/Globulin Ratio 1.1 1-3 Bilirubin Total 0.6 mg/dL 0.4-1.5 16 Alkaline Phosphatase 79 U/L 50-176 Alt (SGPT) 24 U/L 17-63 Ast (Sgot) 16 U/L 12-42 eGFR Non- 94.3 > 60 eGFR 121.3 > 60 17 CBC Auto Diff 09/11/2011 White Blood Count [...] Eosinophils 0.2 0-0.6 Abs Basophils 0 0-0.2 18 Comp Metabolic Panel 05/09/2011 Sodium 140 [...] Neutrophil Count 2.6 Anisocytosis SLIGHT Laboratory test finding 01/08/2011 [facility] Test SURGICAL PATH REPORT Lead 12/22/2010 Lead 1.4 g/dL 0-25.0 24 Lead Specimen Type VENOUS Urine Porphobilinogen 12/22/2010 Porphobilinogen Urine 0.4 mcmol/L <= 1.3 Random Random Porphobilinogen Interp . () 25 Laboratory test finding 12/22/2010 C. Difficile Toxin A B NF 26 Stool Cult Sensitivity NF 27 Shiga Toxin 1 And 2 (Ehec) NEGATIVE BY IMMU <SEE NOTE> 28 O P: Giardia/Crypto 12/22/2010 O P: Giardia/Crypto Giardia and cryp 29 Screen Screen <SEE NOTE> O P: Giardia/Crypto Screen NEGATIVE BY IMMU <SEE NOTE> 30 Stool Specimen Description GREENISH BROWN 31 Stool Culture 12/22/2010 O P: Giardia/Crypto Screen NEGATIVE BY IMMU < SEE 32 NOTE> C. Difficile Toxin A B NEGATIVE BY IMMU <SEE NOTE> 33 Stool Specimen Description GREENISH BROWN 34 Laboratory test 12/22/2010 C Reactive < 0.5 mg/dL Less Than 0.5 finding Protein Laboratory test 09/30/2010 [facility] Test celiac panel finding Laboratory test 06/16/2010 Abo Typing ABO TYPE 35, 36 finding <SEE NOTE> C-Reactive Protein <0.1 mg/dL 0.0-0.5 35 Hla-B27 Disease 06/16/2010 Hla-B27 Negative 35, 37 Association Anti Dna (SS) Igg, AB 06/16/2010 Anti-Dna(SS)IgG, Ab, <20 EU 0-19 35 , 38 Qn Antiextractable Nuclear Ag 06/16/2010 METALLURGICAL ANALYST Antibodies <0.2 AI 0.0-0.9 35 Cervantes Antibodies <0.2 AI 0.0-0.9 35 Patricia Panel Complete [place] 06/16/2010 Antinuclear Abs, Ifa Negative 35, 39 Rheumatoid Arth Factor 5.7 IU/mL 0.0-13.9 35 Anti Dsdna Antibodies <1 IU/mL 0-9 35, 40 Laboratory test finding 06/16/2010 Gamma gt 49 U/L 5-71 35 Celiac Disease Comp PNL 06/16/2010 Deamidated Gliadin Abs, 35 units High 0 -19 35, 41 IgA Deamidated Gliadin Abs, IgG 3 units 0-19 35, 42 t-Transglutaminase (tTG) IgA <2 U/mL 0-3 35, 43 t-Transglutaminase (tTG) IgG <2 U/mL 0-5 35, 44 Endomysial Antibody IgA Negative Negative 35 Immunoglobulin A, Qn, Serum 305 mg/dL 70-400 35 CBC ([facility]) 06/16/2010 WBC 3.6 3.6-9.6 RBC 5.12 3.90-5.70 Hemoglobin (Fma/CMC/CTX) 14.3 g/dL 12.1 - 17.2 Hematocrit (Fma/CMC/CTX) 42.8 % 36.1 - 50.3 Platelets 215 10^3/ul 150-400 Lymph% 45.9 20.5-51.1 Mixed% 6.3 Neutrophils % 47.8 Mean Corpuscular Vol 84 82.2-97.4 Mean Corpuscular Hemoglobin 27.9 27.6-33.3 Mean Corpuscular Hemo Concen 33.4 32.0-36.0 RDW 12.7 11.6-13.7 Mean Platelet Volume 8.4 6.5-11.0 Laboratory test finding 06/16/2010 Sed Rate ([facility]) 7mm Laboratory test finding 06/16/2010 TSH 2.52 mIU/L 0.50-6.00 Comprehensive Metabolic 06/16/2010 Albumin 4.8 g/dL 3.8-5.5 Prof Alk. Phos. 78 U/L 22-95 Alt (SGPT) 48 U/L High 10-40 45 Ast (Sgot) 25 U/L 5-34 BUN 19 mg/dL 6-26 Calcium 9.7 mg/dL 8.6-10.2 Chloride 105 mEq/L 94-112 Creatinine 0.9 mg/dL 0.6-1.4 Carbon Dioxide 28 mEq/L 21-32 Glucose 82 mg/dL 70-105 Sodium 137 mEq/L 134-149 Total Bilirubin 0.4 mg/dL 0.2-1.3 Total Protein 7.9 g/dL 6.3-8.1 Potassium 4.3 mEq/L 3.6-5.5 Globulin 3.1 g/dL 2.0-4.8 A/G Ratio 1.6 Calc 0.6-2.2 BUN/Creat Ratio 21.3 Calc 8.0-36.0 Culture Stool 03/10/2010 Stool Specimen Description YELLOW BROWN 46 Campylobacter Culture NF 47 Laboratory test finding 03/10/2010 Stool Cult Sensitivity NF 48 Shiga Toxin 1 And 2 (Ehec) NEGATIVE BY IMMU <SEE NOTE> 49 Surgical Pathology 11/11/2009 Surgical Pathology <SEE [...] Protein NEG Urobil 0.2 Nitrite NEG Leukocytes (a/[facility]) NEG Laboratory test 03/18/2006 [facility] Labs LFT;CBC;ACID FAST See Image finding Report Laboratory test 03/18/2006 Fungal Cult NO GROWTH OF MY 51, 52 finding Other Sources <SEE NOTE> Lyme Igg/M W/Reflx 01/02/2006 Lyme IgG/IgM Ab <0.91 index 0.00-0.90 53, 54 West Lyme Ab Interp.,Eia DNR 53 Lyme Ab Interp.,Eia DNR 53 Lyme Disease Ab, Quant, IgM <0.91 index 0.00-0.90 53, 55 Lyme Ab IgM Interp., Eia DNR 53 Lyme Ab IgM Interp., Eia DNR 53 Hla-B27 Profile 01/02/2006 Hla-B27 Negative 53, 56 Anti Dna (SS) Igg, AB 01/02/2006 Anti-Dna(SS)IgG, 24 EU High 0-19 53, 57 Ab, Qn Antiextractable Nuclear 01/02/2006 METALLURGICAL ANALYST Antibodies 5 U/ml Negative 53, 58 Ag (Cervantes/METALLURGICAL ANALYST) Cervantes Antibodies 6 U/ml Negative 53, 59 Patricia Panel Complete [place] 01/02/2006 Antinuclear AB (Patricia) NEGATIVE Negative 53 Rheumatoid Factor (RF) <11.0 IU/mL 0.0-20.0 53 Anti Dna (DS) 37.42 IU/mL <30 53, 60 CBC ([place]) (Fma) [facility] 01/02/2006 WBC 6.8 3.6-9.6 RBC 5.82 High 3.90-5.70 Hemoglobin (Fma/CMC/CTX) 15.6 [...] Lymph% 25.6 20.5-51.1 Monocytes 2.5 % 1.7-9.3 Laboratory test finding 04/17/2005 Throat - Beta Strep POSITIVE @ 24HRS Laboratory test finding 08/14/2004 [facility] C&S NO GROWTH DAY 2 Final Laboratory test finding 07/04/2004 Throat - Beta Strep NEGATIVE@48HRS Ua - Non Micro ([facility]) 02/23/2004 Appearance CLEAR Color LT YELLOW Glucose NEG Bilirubin NEG Ketones NEG SP Grav 1.025 Blood NEG PH 5.5 Protein SSA NEG Urobil 0.2 Nitrite NEG Leukocytes NEG Ua - Micro ([facility]) 02/09/2004 Appearance CLEAR Color LIGHT YELLOW [...] /Lpf Comments - Ua - Non Micro ([facility]) 01/19/2004 Appearance CLEAR Color LT YELLOW Glucose NEG Bilirubin NEG Ketones NEG SP Grav 1.025 Blood NEG PH 7.0 Protein SSA 3+ Urobil 0.2 Nitrite NEG Leukocytes NEG CBC Electronic ([facility]) 01/27/2003 WBC 8.9 CUMM 4.8-14.5 RBC 5.25 CUMM 3.9-5.3 Hemoglobin (Fma/CMC/CTX) 14.1 g/dL High 11.5-14.0 Hematocrit (a/CMC/CTX) 42 % High 34-40 Mean Corpuscular Vol [...] developed and its performance characteristics determined by [employer]. It has not been cleared or approved [...] VALUE -- <20.0 (Negative) Test Performed by: [place] [address] Master Rigger: Higinio Trujillo III, M.D. 11 Interpretation: Weak Positive (20.0-30.0) -- REFERENCE VALUE -- <20.0 (Negative) 12 RESULTS VERIFIED BY REPEAT ANALYSIS 13 ICTOTEST IS A QUALITATIVE CONFIRMATORY TEST FOR BILIRUBIN. 14 PLEASE NOTE NEW REFERENCE RANGE. 15 Anion gap measurement may be of limited value in the presence of any alkalosis, especially in a combined acid base disorder. . 16 A metabolite of Naproxen, O-desmethylnaproxen, has been shown to interfere with the [place] method for measuring total bilirubin. Samples from patients who have taken Naproxen have shown spurious elevation in total bilirubin levels. 17 Because ethnic data is not always readily [...] 15-29 5 Kidney failure <15 (or dialysis) 18 Lymphopenia % 19 Anion gap measurement may be of [...] 0.06 ng/mL NOT SUPPORTIVE OF DIAGNOSIS OF NM 0.06 - 0.50 ng/ml INDETERMINATE: SUGGEST SERIAL STUDIES IF CLINICALLY INDICATED. Greater than 0.5 ng/mL CONSISTENT WITH DIAGNOSIS OF NM . 23 Neutropenia % Lymphocytosis % 24 [...] FOR BLOOD LEAD. TESTING WAS PERFORMED BY [facility] WHICH IS LICENSED BY [facility] TO PERFORM BLOOD LEAD TESTING. THIS CERTIFICATE IS PROVIDED A SERVICE TO OUR CLIENTS AND THEIR PATIENTS WHO MAY BE REQUIRED TO PRODUCE DOCUMENTATION OF BLOOD LEAD TESTING. . 25 In this urine sample, the excretion of porphobilinogen was normal. Test Performed by: [facility] Dpt of Lab Med and Pathology [address] [place], [place] [id number] Master Rigger: Higinio Trujillo III, M.D. 26 NO GROWTH OF CAMPYLOBACTER AFTER 48 HOURS 27 NEGATIVE FOR THE ENTERIC PATHOGENS - SALMONELLA, SHIGELLA, AEROMONAS, PLESIOMONAS AND YERSINIA. VIBRIO AND E. COLI 0157 NOT ROUTINELY TESTED FOR IN A STOOL CULTURE. PLEASE SUBMIT SAMPLE WITH SPECIFIC REQUEST FOR DESIRED ORGANISM(S). 28 NEGATIVE BY IMMUNOCHROMATOGRAPHIC ASSAY NEGATIVE BY IMMUNOCHROMATOGRAPHIC ASSAY 29 Giardia and cryptosporidium antigen testing performed by immunoassay. If patient is immunocompromised or has traveled to or is from a developing country, a full ova and parasite exam with microscopic (OPMIC) is recommended. All samples will be held one month in case full ova and parasite testing is requested. Contact the Microbiology Department at [phone]. TEST LIMITATIONS: As with all diagnostic procedures, [...] with the test and are not recommended. 30 NEGATIVE BY IMMUNOASSAY NEGATIVE BY IMMUNOASSAY 31 PASTY NONFORMED 32 NEGATIVE BY IMMUNOASSAY NEGATIVE BY IMMUNOASSAY 33 NEGATIVE BY IMMUNOASSAY 34 PASTY NONFORMED 35 FASTING; 1 LAV; 2 PINK TOP; 5 SST LAB: FASTING; 1 LAV; 2 PINK TOP; 5 SST 36 ABO TYPE O 06/17/10 00:53 PROV1 37 This test was performed using PCR (Polymerase Chain Reaction)/SSOP (Sequence Specific Oligonucleotide Probes) technique. SBT (Sequence Based Typing) and/or SSP (Sequence Specific Primers) may be used as supplemental methods when necessary. Please contact [facility] Customer Service at if you have any questions. . Director of [facility] Dr John Paul Stockton, PhD 38 Negative: <20 Borderline: 20 - 25 Positive: >25 39 Negative <1:80 Borderline 1:80 Positive >1:80 40 Negative <5 Equivocal 5 - 9 Positive >9 41 Negative 0 - 19 Weak Positive 20 - 30 Moderate to Strong Positive >30 42 Negative 0 - 19 Weak Positive 20 - 30 Moderate to Strong Positive >30 43 Negative 0 - 3 Weak Positive 4 - 10 Positive >10 . Tissue Transglutaminase (tTG) has been identified as the endomysial antigen. Studies have demonstr- ated that endomysial IgA antibodies have over 99% specificity for gluten sensitive enteropathy. 44 Negative 0 - 5 Weak Positive 6 - 9 Positive >9 45 RESULT BECKIE'D 46 SOFT SEMI-FORMED PASTY 47 NO GROWTH OF CAMPYLOBACTER AFTER 48 HOURS 48 NEGATIVE FOR THE ENTERIC PATHOGENS - SALMONELLA, SHIGELLA, AEROMONAS, PLESIOMONAS AND YERSINIA. VIBRIO AND E. COLI 0157 NOT ROUTINELY TESTED FOR IN A STOOL CULTURE. PLEASE SUBMIT SAMPLE WITH SPECIFIC REQUEST FOR DESIRED ORGANISM(S). 49 NEGATIVE BY IMMUNOCHROMATOGRAPHIC ASSAY NEGATIVE BY IMMUNOCHROMATOGRAPHIC ASSAY 50 ---- RUN DATE: 11/15/09 [facility] NMI LIVE PAGE 1 RUN TIME: 1438 Specimen Inquiry RUN USER: INTERFACE -- Name: INNA VILLEGAS Status: REG REF Re11/11/09 Age/Sex: 19/M Unit#: [id number] Location: [address] [place] [address]. : 89 -- Specimen: [id number] SOUT Spec Date: 11/11/[address]: Lui Cardoso MD Spec Type: SURGICAL P Received: 11/14/09-4790 Copies to: Tunde combs MD SPECIMEN RANDOM COLON BIOPSIES HISTORY POST-OP DIAGNOSIS: Negative colon and terminal ileum CLINICAL INFORMATION: Chronic diarrhea GROSS DESCRIPTION The specimen is received in formalin labelled Inna Villegas, Random Colon Biopsies, and consists of several fragments of jama-yellow tissue each measuring 0.2 x 0.2 x 0.2 cm. Submitted entirely, one cassette. DIAGNOSIS Random colon, biopsies: Fragments of large bowel mucosa with no significant pathologic changes. Signed Electronically by: SONI JUAREZ 11/15/09 1438 -- -- DEPARTMENT OF PATHOLOGY, [address] [place] [address] [facility] Permit #[id number] Zeus Salgado M.D. Director Soni Juarez M.D. Dermatologist Managing Partner Dir mukesh -- 51 LEFT DORSAL WRIST TISSUE 52 NO GROWTH OF MYCOTIC ORGANISMS AFTER 3 WEEKS 53 1 yellow, 2 lg sst 54 Negative <0.91 Equivocal 0.91 - 1.09 Positive >1.09 Note: The CDC currently advises that Western blot testing be performed following all equivocal or positive EIA results. Final diagnosis should include appropriate clinical findings and a positive EIA which is also positive by Western blot. 55 Negative <0.91 Equivocal 0.91 - 1.09 Positive >1.09 . Note: IgM levels may peak at 3-6 weeks post infection, then gradually decline. FDA currently advises that Western Blot testing be performed following all equivocal or positive EIA results. Final diagnosis should include appropriate clinical findings and a positive EIA which is also positive by Western Blot. 56 This test was performed using PCR (Polymerase Chain Reaction)/SSOP (Sequence Specific Oligonucleotide Probes) technique. SBT (Sequence Based Typing) and/or SSP (Sequence Specific Primers) may be used as supplemental methods when necessary. Please contact [facility] Customer Service at if you have any questions. . Director of [facility] Dr John Paul Stockton, PhD 57 Negative: <20 Borderline: 20 - 25 Positive: >25 58 < 10 Negative > or=10 Positive 59 < 10 Negative > or=10 Positive 60 < 30 Negative 30-75 Equivocal > 75 Positive . Confirmed on reassay . . Procedures Date CPT Code Description Status 01/08/2011 Colonoscopy Completed 12/22/2010 Colonoscopy Completed 11/11/2009 Colonoscopy Completed 10/16/2001 41872 Pulse Oximetry Completed 09/30/2001 54223 Remove Impacted Cerumen Completed Encounters Type Date Location Provider CPT E/M Dx Office Visit 04/02/2016 4:10p [facility] Office Tunde Rucker M.D. 42040 R19.5 Office Visit 09/22/2015 8:00a Main Office Nikkie Sheldon [facility] 60361 K58.9 R19.7 R10.84 Office Visit 08/31/2015 8:00a [facility] Office Nikkie Sheldon [facility] 21661 K58.9 R19.7 R10.84 Office Visit 03/02/2015 2:20p Main Office Inderjit Ibarra M.D. 82261 J30.1 Office Visit 02/07/2015 2:30p [place] [address] 784.0 920 E917.4 Office Visit 10/07/2014 9:00a Main Office Miriam BreeYue-C 63590 890.0 E849.0 E917.4 V06.5 Office Visit 06/04/2014 3:40p [facility] Office Inderjit Ibarra M.D. 96179 569.3 Office Visit 04/07/2014 4:20p Main Office Inderjit Ibarra M.D. 12947 564.1 Office Visit 12/25/2013 2:50p [facility] Office Inderjit Ibarra M.D. 92810 564.1 V15.02 579.0 Office Visit 11/25/2013 4:20p Main Office Inderjit Ibarra M.D. 55686 493.90 Office Visit 09/15/2013 12:00p Main Office [place] 38[address] 564.1 789.07 Office Visit 02/04/2012 2:50p [facility] Office Tunde Rucker M.D. 57906 564.1 289.0 Office Visit 07/23/2011 10:00a [facility] Tunde Rucker M.D. 28762 564.1 Office Visit 09/22/2010 1:00p [facility] Alberta Forde 34219 528.00 Office Visit 06/15/2010 8:00p Main Office Tunde Rucker M.D. 99227 787.91 Office Visit 03/02/2010 9:15a [facility] Belem KimbleBARBARA grajeda 08935 787.91 V04.81 Office Visit 11/03/2009 1:00p [facility] [place] BARBARA Castillo 67212 787.91 Office Visit 11/05/2008 11:30a [facility] Miriam SwansonAlberta carlson 69687 682.8 Office Visit 05/08/2008 1:00p Main Office Perry Hahn M.D. 24977 462 465.9 Office Visit 06/30/2007 1:50p Main Office Leland Freire M.D. 57006 462 Office Visit 02/05/2007 3:10p [facility] Tunde Rucker M.D. 75053 719.47 Office Visit 01/08/2007 2:10p [facility] Tunde Rucker M.D. 72529 V70.3 564.1 308.0 719.45 Office Visit 11/28/2006 7:30p Main Office Tunde Rucker M.D. 07089 719.45 Office Visit 03/05/2006 4:00p [facility] Jaskaran Frazier M.D. 05630 998.89 Office Visit 01/02/2006 10:20a [facility] Tunde Rucker M.D. 82072 524.9 729.9 Office Visit 04/17/2005 9:45a [facility] Alberta Pearce 83097 465.9 462 Office Visit 10/31/2004 6:15p Main Office DEMETRIUS Castrejon 51082 524.60 995.3 Office Visit 07/04/2004 1:45p [facility] Alberta Pearce 24052 462 Office Visit 01/19/2004 1:40p Main Office Tunde Rucker M.D. 73195 V70.3 789.00 V06.5 Office Visit 09/14/2003 11:30a [facility] Cierraroger FalconAlberta parekh 28563 784.7 Office Visit 04/14/2003 4:00p Main Office Alberta Pearce 76119 729.5 V04.8 Office Visit 11/25/2002 2:20p [facility] Tunde Rucker M.D. 06811 V20.2 Office Visit 08/10/2002 10:45a Main Office Alberta eParce 70017 724.5 Office Visit 04/15/2002 2:10p [facility] Tunde Rucker M.D. 25431 706.3 826.0 Office Visit 10/16/2001 6:10p Main Office Tunde Rucker M.D. 11729 Office Visit 09/08/2001 4:00p Main Office Leon Gonsales M.D. 95088 Office Visit 01/01/2000 6:15p Main Office BARBARA Luevano 23809 Plan of Care 05/15/2017 - Nikkie Sheldon, [id number] JxsasA65.9 Fever, rzwzlqtjyhiG23.1 KftwhedJ57.9 Acute pharyngitis, unspecifiedAllComments:~B_~U_Medication Management~b_~u_ Patient Understands medications he 's taking? Yes No Are there Barriers to Adherence? Yes No Has the patient been asked about herbal supplements and therapies, and OTC meds? Yes No
[2017-06-08 11:03] LABS: ABS Basophils 0 10^3/ul (0-0.2); ABS Eosinophils 0 10^3/ul (0-0.6); ABS Lymphocytes 0.6 10^3/ul (1.0-4.8); ABS Monocytes 0.1 10^3/ul (0-0.8); ABS Neutrophils 1.4 10^3/ul (1.5-7.7); ABS Nucleated RBC 0 10^3/ul; Eosinophil % 1.3 % (0-6); Hematocrit 42 % (42-52); Hemoglobin 14.2 g/dl (14.0-18.0); Lymphocyte % 26.8 % (25-47); Mean Corpuscular HGB Conc 34 g/dl (31-36); Mean Corpuscular Hemoglobin 27 pg (27-31); Mean Corpuscular Volume 81 fL (80-94); Mean Platelet Volume 9 um3 (7.4-10.4); Nucleated Red Blood Cells % 0.3; Platelet Count 137 10^3/ul (150-450); Red Blood Count 5.22 10^6/ul (4.0-5.4); Red Cell Distribution Width 13 % (10.5-15); White Blood Count 2.1 10^3/ul (3.5-10.8)
[2017-06-08 11:05] LABS: EGFR Non-African American 81.1 (>60)
--- NOTE | 2017-06-08 11:34 | ED ---
Allergic Reaction/Systemic - HPI Summary HPI Summary: Patient presents to the ED with CC of allergic reaction. He states he was recently in the hospitalization for PNA. Noted on labs was low Vitamin B12 and low Vitamin D. He has been given 4 shots of B12 without any reactions. He took his first dose of Vitamin D 50,000 units yesterday in which he developed a morbilloform rash following. He has taken 4 doses of 50mg benadryl over the course of 24 hours and states the rash continues to spread. The rash is maculopapular, diffuse across upper and lower extremities involving neck and torso, extremely pruritic. He denies any odynophagia, dysphagia, difficulty breathing, WOODS, fever, sweats, chills, abdominal pain, weakness, extremity pain or other concerns at this time. is at bedside. He appears in NAD and is cheerful on exam. Alleviated by nothing, aggravated by nothing. - History of Current Complaint Chief Complaint: EDAllergicReaction Time Seen by Provider: 06/08/17 10:19 Hx Obtained From: Patient Onset/Duration: Gradual Onset Timing: Constant Severity Initially: Moderate Severity Currently: Moderate Pain Intensity: 2 Pain Scale Used: 0-10 Numeric Location: Diffuse Character: Pruritus, Hives Aggravating Factor(s): Nothing Alleviating Factor(s): Nothing Associated Signs And Symptoms: Positive: Rash. Negative: Abdominal Pain, Chest Pain, Cough Wheezing, Diaphoresis, Hoarseness, Lightheadedness, Nausea, Syncope , Throat Tightening, Vomiting - Related Hx Possible Reaction To: Medications - Allergies/Home Medications Allergies/Adverse Reactions: Allergies Allergy/AdvReac Type Severity Reaction Status Date / Time Codeine Allergy GI Upset Verified 06/02/17 23:37 Food Allergy GI Upset Verified 08/06/13 11:52 PMH/Surg Hx/FS Hx/Imm Hx Previously Healthy: Yes Cardiovascular History: Reports: Other Cardiovascular Problems/Disorders - arrhythmia GI History: Reports: Hx Irritable Bowel Denies: Other GI Disorders Sensory History: Reports: Hx Contacts or Glasses - GLASSES Denies: Hx Hearing Aid Opthamlomology History: Reports: Hx Contacts or Glasses - GLASSES - Surgical History Surgery Procedure, Year, and Place: LEFT ARM X2 2007 AND 2008, [facility] Hx Anesthesia Reactions: No Infectious Disease History: No Infectious Disease History: Denies: Traveled Outside the [place] in Last 30 Days - Family History Known Family History: Positive: Unknown - Pt is adopted and is unsure of FHx - Social History Occupation: Employed Full-time Lives: With Family Alcohol Use: Weekly Alcohol Amount: 2 PER WEEK Hx Substance Use: No Substance Use Type: Reports: None Hx Tobacco Use: No Smoking Status (MU): Never Smoked Tobacco Review of Systems Constitutional: Negative Negative: Fever, Chills, Fatigue, Skin Diaphoresis Eyes: Negative Cardiovascular: Negative Respiratory: Negative Negative: Shortness Of Breath, Cough Negative: Abdominal Pain, Vomiting, Nausea Positive: no symptoms reported, see HPI Positive: Rash - morbilloform rash Neurological: Negative All Other Systems Reviewed And Are Negative: Yes Physical Exam Triage Information Reviewed: Yes Vital Signs On Initial Exam: Initial Vitals Temp Pulse Resp BP Pulse Ox 100.6 F 109 17 113/76 100 06/08/17 10:36 06/08/17 10:36 06/08/17 10:36 06/08/17 10:36 06/08/17 10:36 Vital Signs Reviewed: Yes Appearance: Positive: Well-Appearing, No Pain Distress, Well-Nourished Skin: Positive: Warm, Skin Color Reflects Adequate Perfusion, Other - morbilloform/maculopapular diffuse rash Head/Face: Positive: Normal Head/Face Inspection Eyes: Positive: EOMI, ALEJANDRO, Conjunctiva Clear Neck: Positive: Supple, No Lymphadenopathy Respiratory/Lung Sounds: Positive: Clear to Auscultation, Breath Sounds Present Cardiovascular: Positive: Normal, RRR, Pulses are Symmetrical in both Upper and Lower Extremities Musculoskeletal: Positive: Normal, Strength/ROM Intact Neurological: Positive: Speech Normal Psychiatric: Positive: Normal, Affect/Mood Appropriate AVPU Assessment: Alert - [place] Coma Scale Coma Scale Total: 15 Diagnostics - Vital Signs Vital Signs Temp Pulse Resp BP Pulse Ox 06/08/17 10:36 100.6 F 109 17 113/76 100 - Laboratory Lab Results: Lab Results 06/08/17 06/08/17 06/08/17 Range/Units 10:30 10:30 10:30 WBC 2.1 L (3.5-10.8) 10^3/ul RBC 5.22 (4.0-5.4) 10^6/ul Hgb 14.2 (14.0-18.0) g/dl Hct 42 (42-52) % MCV 81 (80-94) fL MCH 27 (27-31) pg MCHC 34 (31-36) g/dl RDW 13 (10.5-15) % Plt Count 137 L (150-450) 10^3/ul MPV 9 (7.4-10.4) um3 Neut % (Auto) 67.3 (38-83) % Lymph % (Auto) 26.8 (25-47) % Hod[place]eman % (Auto) 4.4 (1-9) % Eos % (Auto) 1.3 (0-6) % Baso % (Auto) 0.2 (0-2) % Absolute Neuts (auto) 1.4 L (1.5-7.7) 10^3/ul Absolute Lymphs (auto) 0.6 L (1.0-4.8) 10^3/ul Absolute Monos (auto) 0.1 (0-0.8) 10^3/ul Absolute Eos (auto) 0 (0-0.6) 10^3/ul Absolute Basos (auto) 0 (0-0.2) 10^3/ul Absolute Nucleated RBC 0 10^3/ul Nucleated RBC % 0.3 Sodium 137 (133-145) mmol/L Potassium 3.7 (3.5-5.0) mmol/L Chloride 104 (101-111) mmol/L Carbon Dioxide 25 (22-32) mmol/L Anion Gap 8 (2-11) mmol/L BUN 10 (6-24) mg/dL Creatinine 1.09 (0.67-1.17) mg/dL Est GFR ( Amer) 104.4 (>60) Est GFR (Non-Af Amer) 81.1 (>60) BUN/Creatinine Ratio 9.2 (8-20) Glucose 86 (70-100) mg/dL Lactic Acid 1.9 (0.5-2.0) mmol/L Calcium 9.2 (8.6-10.3) mg/dL Total Bilirubin 0.50 (0.2-1.0) mg/dL AST 37 (13-39) U/L ALT 62 H (7-52) U/L Alkaline Phosphatase 76 (34-104) U/L C-Reactive Protein 2.11 (< 5.00) mg/L Total Protein 7.7 (6.4-8.9) g/dL Albumin 4.1 (3.2-5.2) g/dL Globulin 3.6 (2-4) g/dL Albumin/Globulin Ratio 1.1 (1-3) Result Diagrams: 06/08/17 10:30 06/08/17 10:30 Lab Statement: Any lab studies that have been ordered have been reviewed, and results considered in the medical decision making process. Allergic Reaction Course/Dx - Course Course Of Treatment: Evaluated for morbilloform/maculopapular diffuse pruritic rash without involvement pharynx and no SOB. He has been taking 4 doses of benadryl x 24 hours without relief. Denies history of allergies. First time taking vitamin d. Endorses new vitamin b 12 injections, but no reaction was found. CBC and CMP obtained to assess for infection. Eosinophils and neutrophils are not elevated with concern for systemic symptoms DRESS or acute generalized exanthematous pustulosis (AGEP). No evidence of a cutaneous reaction. Liver function tests WNL. No evidence of erythroderma, blistering, purpura, or pustulation for concern for SJS/MAGDALENA. No evidence of internal organ involvment as based on the labs and patient is afebrile. He was on penicillin and azithromycin for his PNA. He has been off of these medications for about 3 days. I have discussed that antibiotics can create a delay in drug eruption reactions. I have advised the use of medications including: Certrizine, hydroxyzine, benadryl, and triaminolone cream only for area of extreme pruritis. He is agreeable to this plan and continues to have no symptoms involving his breathing or throat closure. I have advised discontinuing the vitamin d 50,000 and starting a 2000 unit daily tab after his rash subsides and only if he is asymptomatic. He agrees to this plan. He will follow up with Dr. Espitia as scheduled. - Diagnoses Provider Diagnoses: Drug reaction Discharge - Discharge Plan Condition: Stable Disposition: HOME Prescriptions: Cetirizine* [ZyrTEC 10 MG TAB*] 10 mg PO DAILY #10 tab diPHENhydraMINE PO* [Benadryl PO 50 MG CAP*] 50 mg PO BEDTIME PRN #10 cap PRN Reason: Itching hydrOXYzine HCL TAB* [Atarax 25 MG TAB*] 25 mg PO QID PRN #20 tab PRN Reason: Itching Triamcinolone 0.5% CREAM(NF) [Triamcinolone 0.5% CREAM*] 1 applic TOPICAL BID # 1 tube Patient Education Materials: Antibiotic Medication Allergy (ED), Adverse Drug Reaction (ED), Cold Compress or Soak (ED) Referrals: Tunde Rucker MD [Primary Care Provider] - Additional Instructions: As discussed, I believe you have a drug reaction which is affecting your skin You do not appear to have any systemic reaction otherwise I advise you discontinue 50,000 units of Vitamin D at this time until reaction subsides I am unable to discern if your reaction is from your previous antibiotics of the vitamin D You may try to obtain the 2000 units of vitamin D and take daily Please follow up with your PCP
[2017-06-08] MEDS ORDERED: Acetaminophen TAB* 325 MG PO ONE (12:33)
[2017-06-08 12:39] VITALS: BP 120/68
== END 2017-06-08 12:39 | disposition home or self-care (01) ==
LOC: ED 10:15
DX: R21 Rash and other nonspecific skin eruption (principal); L50.9 Urticaria, unspecified; T50.901A Poisoning by unspecified drugs, medicaments and biological substances, accidental (unintentional), initial encounter; Y92.9 Unspecified place or not applicable
CPT/HCPCS: 36415; 80053; 83605; 85025; 86140; 96374; 96375; 99282; A9270-GY; J1200; J2930

== ENCOUNTER 2018-07-14 19:14 | Emergency (ER) | payer SELFPAY ==
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
[2018-07-14] MEDS ORDERED: Acetaminophen TAB* 325 MG PO ONE (20:09)
[2018-07-14 20:21] VITALS: BP 138/92
== END 2018-07-14 20:32 | disposition home or self-care (01) ==
LOC: UCEAST 19:14
DX: S00.83XA Contusion of other part of head, initial encounter (principal); W22.8XXA Striking against or struck by other objects, initial encounter; Y92.512 Supermarket, store or market as the place of occurrence of the external cause; Y99.0 Civilian activity done for income or pay; Z88.5 Allergy status to narcotic agent
CPT/HCPCS: 99212; A9270-GY; G0463